=== PATIENT | female | born 1990 | race Caucasian/White ===

== ENCOUNTER → 2020-06-26 11:42 | Outpatient (BNVA) | payer OTHER, SELFPAY | PROVIDERS: Visit Provider Advanced Practice Midwife ==

== ENCOUNTER → 2020-06-29 13:41 | Outpatient (BNVA) | payer OTHER, SELFPAY | PROVIDERS: PCP Internal Medicine; Visit Provider Advanced Practice Midwife | DX: Z30.432 Encounter for removal of intrauterine contraceptive device (principal) | CPT/HCPCS: 58301 ==

== ENCOUNTER 2023-09-04 08:47 | Outpatient (AMB) | payer OTHER, SELFPAY ==
--- NOTE | 2023-09-04 08:50 | MHC.PC.OV ---
Vital Signs 09/04/23 08:54 Height 5 ft 5.5 in Weight 212 lb 6 oz BMI 34.8 BP 122/64 Blood Pressure Location Lt brachial Position Sitting Pulse 92 Pulse Source Pulse Oximeter Pulse Oximetry (%) 97 Oxygen Delivery Method Room Air Intake Visit Reasons: Re-establishing care last seen 2019/Annual PE Intake Note: Patient is here today to re-establish care. Business Intelligence Manager Required: No Marketing Research Intern: Not Required per policy Accompanied by: Self / Same As Patient Allergies iodine [IODINE] Allergy (Severe, Verified 09/04/23 09:15) THROAT CLOSING povidone-iodine [From BETADINE] Allergy (Severe, Verified 09/04/23 09:15) THROAT CLOSING soap [From BETADINE] Allergy (Severe, Verified 09/04/23 09:15) THROAT CLOSING Shellfish Allergy (Unknown, Uncoded 09/04/23 09:15) rash Medication List - Last Reconciled 09/04/23 by Garfield Estrada MD calcium carbonate (Tums) 200 mg PO TID PRN Tobacco use date assessed: 09/04/23 Dental Screening Dental Screen Date: 09/04/23 Did you have a dental visit in the last 12 months?: Yes Did you have a dental problem in the last 6 months where you did not have access to dental care?: No Was dental information given to patient?: Patient has dentist HPI Re-establishing care last seen 2019/Annual PE HPI Details Patient comes in today for her annual physical examination and to reestablish care - was last seen (via telehealth visit) on 07/20/2019 Patient states that she has since moved to the [facility] and got busy with her 2 children (ages 2 and 6) and did not even realize it has been that long since she was last seen here States that she has been experiencing increasing heartburns/acid reflux for the past few months and at one point, was having heartburns all the time - has been taking OTC Tums PRN with temporarily relief of her symptoms States that she has tried changing her diet and this seems to have helped somewhat but she is still experiencing acid reflux often and that these are usually worse towards the later part of the day She denies any trouble swallowing, denies any sore throat and denies any nausea/vomiting, or abdominal pain States that she still has frequent constipation - recalls that her bowel movements were much better when she was taking Miralax in the past but states that she has not been compliant with taking Miralax and instead has just been taking OTC stool softeners PRN She denies any headaches or dizziness Denies any exertional chest pains but reports (+) occasional sharp pains over her chest wall that she thinks are mostly due to anxiety as she seems to get them when she feels stressed out; denies any SOB Adds that she has a nodule on her right wrist that has been present for a couple of months now and feels that this has gotten bigger lately Notes that she would feel pain over the area where her nodule is when she extends her right wrist She goes for her annual gynecology exam and pap smear at [facility] and states that she last had her pap smear done in 11/2022 when she had her [facility] Medical History (Updated 09/04/23 @ 09:43 by Garfield Estrada MD) History of atrial septal defect Obesity (BMI 30-39.9) Constipation Smoker GERD (gastroesophageal reflux disease) Surgical History (Updated 09/04/23 @ 09:38 by Garfield Estrada MD) History of percutaneous transcatheter closure of congenital ASD Hx of section Family History Maternal Grandmother Ovarian cancer Family/Other Ovarian cancer Social History Housing: House Alcohol intake: never Patient Tobacco Use Status: Current everyday Tobacco user Tobacco use type: Cigarette Cigarette Packs Per Day: 0.5 Cigarettes Per Day: 8 e-Cigarette/Vaping Use: Never Used Second Hand Smoke Exposure: Yes service: No Current occupational status: unemployed Cognitive needs: No Hearing needs: No Vision needs: Yes (Reading Glasses) Female Reproductive History Menstrual Age of Menarche: 12 Number of Living Children: 2 Date of last pap smear: 12/13/22 Questionnaire PHQ-9 Over the last 2 weeks, how often have you been bothered by any of the following problems? 1. Little interest or pleasure in doing things: not at all 2. Feeling down, depressed, or hopeless: not at all 3. Trouble falling or staying asleep, or sleeping too much: not at all 4. Feeling tired or having little energy: not at all 5. Poor appetite or overeating: not at all 6. Feeling bad about yourself - or that you are a failure or have let yourself or your family down: not at all 7. Trouble concentrating on things, such as reading the newspaper or watching television: not at all 8. Moving or speaking so slowly that other people could have noticed. Or the opposite - being so fidgety or restless that you have been moving around a lot more than usual: not at all 9. Thoughts that you would be better off or of hurting yourself in some way: not at all Total score: 0 Depression Screening Interpretation: Negative Depression Screening Done: Yes 23710 - PHQ-9 Billing: Yes Source: Developed by Drs. Ryder Olivo, Iris Schaefer, Bryan Loaiza and colleagues, with an educational joelle from [email or web address] Thrive Questionnaire Date Thrive assessed: 09/04/23 I am a: Patient What is your living situation today?: I have a steady place to live Within the past 12 months, did the food you bought not last and you didn't have the money to get more?: Never true Within the past 12 months, did you worry whether your food would run out before you got money to buy more?: Never true Do you have trouble paying for medicines?: No Do you have trouble getting transportation to medical appointments?: No Do you have trouble paying your heating and electricity bill?: No Do you have trouble taking care of your child, family member or friend?: No Do you have trouble with day-to-day activities such as bathing, preparing meals, shopping, managing finances, etc.?: No Are you currently unemployed and looking for a job?: No Are you interested in more education?: No Currently or been in a relationship where the following occur: No concerns reported THRIVE Score: 0 AUDIT C Alcohol Use Questionnaire (AUDIT-C) 1. How often do you have a drink containing alcohol?: Never Total Score: 0 Score Reviewed/Action Taken: Yes GENI-7 AMB Questionnaire GENI-7 Date GENI - 7 assessed: 09/04/23 Feeling nervous, anxious, or on edge: 0 = Not at all Not being able to stop or control worryin = Not at all Worrying too much about different things: 0 = Not at all Trouble relaxin = Not at all Being so restless that it is hard to sit still: 0 = Not at all Becoming easily annoyed or irritable: 0 = Not at all Feeling afraid as if something awful might happen: 0 = Not at all Total GENI-7 score (0-4 normal; 5-9 mild; 10-14 moderate; 15-21 severe): 0 Source: Developed by Drs. Ryder Olivo, Iris Schaefer, Bryan Loaiza and colleagues, with an educational joelle from [email or web address]. Review of Systems Const Denies chills, Denies fatigue, Denies fever(s), Denies headache(s) and Denies malaise Eyes Denies blurry vision, Denies change in vision, Denies irritation and Denies itchy eyes ENT Denies dysphagia, Denies dizziness, Denies otalgia, Denies headache(s), Denies nasal congestion, Denies neck pain, Denies odynophagia, Denies sinus pain and Denies sore throat Card Details: (+) occasional sharp chest wall pains with increased stress/anxiety Denies chest pain, Denies rapid heart rate, Denies irregular heart rhythm, Denies palpitations and Denies dyspnea Resp Denies chest congestion, Denies cough, Denies dyspnea and Denies wheezing GI Denies abdominal pain, Denies bloating, Reports constipation (frequent), Denies dysphagia, Reports heartburn (recurrent), Denies diarrhea, Denies nausea, Denies odynophagia and Denies vomiting Denies hematuria, Denies urinary frequency, Denies dysuria, Denies urinary incontinence and Denies urinary urgency Musc Denies back pain, Denies arthralgias, Denies joint swelling, Denies muscle weakness and Denies neck pain Skin/Breast Details: (+) nodule on the right wrist - see HPI Denies breast pain, Denies breast mass, Denies change in pigmentation, Denies rash and Denies unusual bruising Neuro Denies dizziness, Denies headache(s) and Denies paresthesias Psych Reports anxiety and Denies depression Endo Denies fatigue and Denies palpitations Zay/Lymph Denies easy bruising Aller/Immun Denies itchy eyes and Denies wheezing Physical exam (Primary Care) Vital Signs: Last Vital Signs Pulse 92 07/05/24 08:54 BP 122/64 09/04/23 08:54 Pulse Ox 97 09/04/23 08:54 Oxygen Delivery Method Room Air 09/04/23 08:54 BMI result Body Mass Index 34.8 Tobacco/Smoking Status: Tobacco use Status Tobacco use date assessed 09/04/23 09/04/23 08:59 Patient Tobacco Use Status Current everyday Tobacco 09/04/23 08:59 Tobacco use type Cigarette 09/04/23 08:59 e-Cigarette/Vaping Use Never Used 09/04/23 08:59 PHQ-9: PHQ-9 Score PHQ-9: Total score 0 09/04/23 08:53 Depression Screening Interpretation: Negative Thrive Assessment: Date of Thrive Assessment Date Thrive assessed 09/04/23 09/04/23 08:53 Currently or been in a relationship where the following occur: No concerns reported Const General: no acute distress, alert and awake Orientation/consciousness: patient oriented x3 HENMT Head: Yes normocephalic and Yes atraumatic Ears: external ears normal, TM's normal bilaterally and EAC's normal General nose exam: No nasal discharge present Face and sinus: Yes normal facial exam and Yes sinuses nontender Teeth and gingiva: dentition normal Throat: Yes posterior oropharynx normal and Yes tonsils normal (no TP congestion) Eyes Eyelids: Yes eyelids normal Conjunctivae: conjunctivae normal Pupils: Equal, round and reactive pupils present EOM: EOMs intact bilaterally Neck Neck: Yes no lymphadenopathy and Yes supple Thyroid: Thyroid normal Resp Auscultation: clear to auscultation bilaterally, no rales and no wheezes Cardio Rate: regular rate Rhythm: regular rhythm Heart sounds: no murmurs GI Palpation (GI): Soft to palpation, nontender and No hepatosplenomegaly present Auscultation: normal bowel sounds General: Yes no CVA tenderness Back/Spine/Pelvis Back: no CVA tenderness Thoracic/Lumbar Spine: thoracic and lumbar spine normal to inspection Skin Lesions: no lesions Rashes: no rashes Neuro General: patient oriented x3, moves all extremities, no focal motor deficits and CN's II-XI intact bilaterally Cranial nerves: Yes Equal, round and reactive pupils present Cognition (Neuro): normal cognition Gait exam (Neuro): Normal gait present Extrem Other: (+) small nodular lesion over the radial side of the volar aspect of the right wrist - nodule is slightly tender on palpation General: Yes no clubbing, cyanosis or edema Assessment and Plan Assessment & Plan (1) Annual physical exam: Code(s): Z00.00 - Encounter for general adult medical examination without abnormal findings Plan: Check labs (2) Ganglion cyst of volar aspect of right wrist: Code(s): M67.431 - Ganglion, right wrist Plan: Will refer patient to orthopedics for further evaluation and consideration for excision/aspiration of her ganglion cyst if appropriate (3) GERD (gastroesophageal reflux disease): Code(s): K21.9 - Gastro-esophageal reflux disease without esophagitis Qualifiers: Esophagitis presence: without esophagitis Qualified Code(s): K21.9 - Gastro-esophageal reflux disease without esophagitis Plan: Discussed dietary restrictions in GERD Will start her for now on Lansoprazole 30 mg QD x 30 days, then PRN (will avoid Omeprazole and Pantoprazole due to patient's severe allergic reaction to iodine) Have advised patient that if her symptoms do not respond to Tx with PPI or if they continue to recur after the initial 30 days of Tx, then we will need to consider sending her for some imaging studies and/or refer her to GI for further evaluation and consideration for EGD (4) Constipation: Code(s): K59.00 - Constipation, unspecified Qualifiers: Constipation type: unspecified constipation type Qualified Code(s): K59.00 - Constipation, unspecified Plan: Encouraged patient again on increased oral fluids and dietary fiber intake Have advised her to try going back on Miralax 17 gm QD; can also still take OTC stool softeners like Senna or Colace PRN (5) Smoker: Code(s): F17.200 - Nicotine dependence, unspecified, uncomplicated Plan: Counseled again on smoking cessation (6) Obesity (BMI 30-39.9): Code(s): E66.9 - Obesity, unspecified Plan: Reinforced diet/exercise as tolerated/lose weight Plan Follow up in 6 months Orders: Orders Complete Blood Count Auto Diff Today D64.9 - Anemia, unspecified, Z00.00 - Encounter for general adult medical examination without abnormal findings Comprehensive [place]. Panel Fast Today E78.00 - Pure hypercholesterolemia, unspecified, Z00.00 - Encounter for general adult medical examination without abnormal findings Lipid Panel Today E78.00 - Pure hypercholesterolemia, unspecified, Z00.00 - Encounter for general adult medical examination without abnormal findings TSH reflex Free T4 Today E78.00 - Pure hypercholesterolemia, unspecified, Z00.00 - Encounter for general adult medical examination without abnormal findings UA CC w/rflx Micro + Cult Today R30.0 - Dysuria, Z00.00 - Encounter for general adult medical examination without abnormal findings Vitamin D 25-OH Total Today E55.9 - Vitamin D deficiency, unspecified, Z00.00 - Encounter for general adult medical examination without abnormal findings Referrals Orthopedics Referral M67.431 - Ganglion, right wrist Medications: New lansoprazole 30 mg PO DAILY 30 days 30 caps 3RF K21.9 - Gastro-esophageal reflux disease without esophagitis Coding Level of Care Code New Pt Prev Care 18-39yr([id number] Diagnoses Annual physical exam Z00.00 Ganglion cyst of volar aspect of right wrist M67.431 Gastroesophageal reflux disease without esophagitis K21.9 Esophagitis presence: without esophagitis Constipation, unspecified constipation type K59.00 Constipation type: unspecified constipation type Smoker F17.200 Obesity (BMI 30-39.9) E66.9
[2023-09-04 08:54] VITALS: BP 122/64; PULSE 92; O2SAT 97; BMI 34.8
== END 2023-09-04 09:28 | disposition home or self-care (01) ==
PROVIDERS: Visit Provider Internal Medicine
DX: Z00.00 Encounter for general adult medical examination without abnormal findings (principal); M67.431 Ganglion, right wrist; K21.9 Gastro-esophageal reflux disease without esophagitis; K59.00 Constipation, unspecified; F17.200 Nicotine dependence, unspecified, uncomplicated
CPT/HCPCS: 99385

== ENCOUNTER 2023-09-16 09:45 | Outpatient (AMB) | payer OTHER, SELFPAY ==
--- NOTE | 2023-09-16 09:55 | MHC.OFFVIS ---
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 Patient reports this has been present for a couple of months and feels that it grew in size. She occasionally feels pain over the area when she extends her wrist. She says she was getting up off the ground one day and felt a sharp pain in her wrist when she put pressure, it was sore and red and she thinks she just pulled a muscle but then noticed a week after the bump. She states it feels hard like a bone . Denies numbness and tingling. 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 She complains of a mass on her right radial wrist, which has been present for ~3. She says she felt pain one day pushing up off the ground, and ~1 week later she began to notice this mass. She says this has changed in size, and feels hard to the touch. She reports pain with wrist extension, but otherwise this does not hurt her. [facility] Medical History History of atrial septal defect Obesity (BMI 30-39.9) Constipation Smoker GERD (gastroesophageal reflux disease) Surgical History History of percutaneous transcatheter closure of congenital ASD Hx of section Family History Maternal Grandmother Ovarian cancer Family/Other Ovarian cancer Social History Housing: House Alcohol intake: never Patient Tobacco Use Status: Current everyday Tobacco user Tobacco use type: Cigarette Cigarette Packs Per Day: 0.5 Cigarettes Per Day: 8 e-Cigarette/Vaping Use: Never Used Second Hand Smoke Exposure: Yes service: No Current occupational status: unemployed Cognitive needs: No Hearing needs: No Vision needs: Yes (Reading Glasses) Female Reproductive History Menstrual Age of Menarche: 12 Review of Systems Const All systems reviewed & are unremarkable except as noted in HPI and below Physical Exam Vital Signs: BMI result Body Mass Index 35.4 Const General: cooperative, healthy appearing and no acute distress Orientation/consciousness: patient oriented x3 HEENT Head: Yes normocephalic and Yes atraumatic Eyes EOM: EOMs intact bilaterally Resp Effort & Inspection: normal respiratory effort and able to speak in complete sentences Cardio Jugular venous distension: no JVD Skin General skin exam: turgor normal Rashes: no rashes Neuro General: patient oriented x3 Extrem Other: Evaluation of Right Upper Extremity: The patient is alert, oriented, and in no acute distress Neuro: Median, Ulnar, Radial nerves motor and sensory intact and sensation is normal to the tips of all digits Vascular: Cap refill brisk ROM: She can make a fist and extend all her digits No locking or catching Skin: No lacerations or abrasions. General: No Ecchymosis. No Erythema or evidence of infection. There is a mass on the volar radial aspect of the right wrist, firm, nontender to palpation. This measures ~1-2 in diameter. Psych Appearance: grossly normal Affect: normal affect Attitude: cooperative Assessment & Plan Assessment & Plan (1) Ganglion cyst of volar aspect of right wrist: Code(s): M67.431 - Ganglion, right wrist Category: Medical Plan Assessment & Plan: 1. Right volar wrist ganglion cyst Measuring ~1-2in diameter I educated her about this condition I discussed operative and non-operative treatment options Her wrist was wrapped in Coban to be used prn. She will follow up in [address] Vilalrreal to see how she is doing. If she continues to have issues we may consider aspiration surgery at that time. Scribed for BROOKLYNN Manley by Gilberto Schroeder, medical transcription supervisor, on 09/16/23 at 10:00 AM, EST. Scribe Plan - Not visible on output: Scribed for Tierney Villarreal MD by Gilberto Schroeder, medical transcription supervisor, on [ ] at [ ], EST. Coding Level of Care Code New Pt Level 3 (30426) Diagnoses Ganglion cyst of volar aspect of right wrist M67.431
[2023-09-16 09:56] VITALS: BMI 35.4
== END 2023-09-16 10:38 | disposition home or self-care (01) ==
DX: M67.431 Ganglion, right wrist (principal)
CPT/HCPCS: 99203

== ENCOUNTER 2024-07-13 08:46 | Outpatient (AMB) | payer OTHER, SELFPAY ==
--- NOTE | 2024-07-13 08:50 | A.OFFPC_ITS ---
Vital Signs 07/13/24 08:52 Height 5 ft 5 in Weight 195 lb 4 oz BMI 32.5 BP 120/80 Blood Pressure Location Lt brachial Position Sitting Pulse 89 Pulse Source Pulse Oximeter Temp 97.1 F Temp Source Temporal Artery Scan Pulse Oximetry (%) 99 Oxygen Delivery Method Room Air Intake Visit Reasons: [facility] 07/09 Intake Note: Patient is here for hospital discharge follow up. Patient was discharged from [facility] on 07/12/24. Police Chief Deputy Required: No Health Education Assistant: Not Required per policy Accompanied by: Self / Same As Patient Allergies iodine [IODINE] Allergy (Severe, Verified 07/13/24 12:07) THROAT CLOSING povidone-iodine [From BETADINE] Allergy (Severe, Verified 07/13/24 12:07) THROAT CLOSING soap [From BETADINE] Allergy (Severe, Verified 07/13/24 12:07) THROAT CLOSING Shellfish Allergy (Unknown, Uncoded 07/13/24 12:07) rash Medication List - Last Reconciled 07/13/24 by NIMA Jones lansoprazole 30 mg PO DAILY 30 days Tobacco use date assessed: 07/13/24 Dental Screening Dental Screen Date: 07/13/24 Did you have a dental visit in the last 12 months?: No Did you have a dental problem in the last 6 months where you did not have access to dental care?: No Was dental information given to patient?: Patient has dentist HPI [facility] 07/09 HPI Details Patient is presenting for follow up post [facility] ER visit: The patient is a 34 year old female presenting with neurological symptoms and management of gastroesophageal reflux disease (GERD). Following the removal of a malpositioned IUD, she experienced abdominal pain and subsequently, difficulty walking, alongside weakness and numbness in the lower extremities. An MRI of the spine proposed impingement but did not clarify the leg weakness noted, although a CT of the head was performed to evaluate for stroke, which was eventually ruled out. The patient experienced a sudden improvement of symptoms, with complete return of sensation and strength. MRI of the spine: Shows no abnormally enhancement. Findings are most marked at the level of L5/L1. Mild diffuse disc bulge slightly eccentric to the left causing moderate left lateral recess narrowing with abutmen of the traversing left S1 nerve root in the left lateral recess and moderate to severe neural in the left neural foraminal narrowing causing impingement on existing left L5 nerve root. Central canal, right lateral recess, and right neural foramin are patent. MRI of the brain was aborted due to improvement of symptoms. Regarding GERD, her heartburn was initially managed with lansoprazole, which was effective until she developed a widespread rash, subsequently identified as athlete's foot by urgent care and treated with steroid cream. After discontinuing the medication, the heartburn returned with consistent, severe chest burning, independent of meal consumption. [facility] Medical History History of atrial septal defect Obesity (BMI 30-39.9) Constipation Smoker GERD (gastroesophageal reflux disease) Surgical History History of percutaneous transcatheter closure of congenital ASD Hx of section Family History Maternal Grandmother Ovarian cancer Family/Other Ovarian cancer Social History Housing: House Alcohol intake: never Patient Tobacco Use Status: Current everyday Tobacco user Tobacco use type: Cigarette Cigarette Packs Per Day: 0.5 Cigarettes Per Day: 7 e-Cigarette/Vaping Use: Never Used Second Hand Smoke Exposure: Yes service: No Current occupational status: unemployed Current occupation: rt handed Cognitive needs: No Hearing needs: No Vision needs: Yes (Reading Glasses) Female Reproductive History Menstrual Age of Menarche: 12 Questionnaire PHQ-9 Over the last 2 weeks, how often have you been bothered by any of the following problems? 1. Little interest or pleasure in doing things: not at all 2. Feeling down, depressed, or hopeless: not at all 3. Trouble falling or staying asleep, or sleeping too much: not at all 4. Feeling tired or having little energy: several days 5. Poor appetite or overeating: several days 6. Feeling bad about yourself - or that you are a failure or have let yourself or your family down: not at all 7. Trouble concentrating on things, such as reading the newspaper or watching television: not at all 8. Moving or speaking so slowly that other people could have noticed. Or the opposite - being so fidgety or restless that you have been moving around a lot more than usual: several days 9. Thoughts that you would be better off or of hurting yourself in some way: not at all Total score: 3 Depression Screening Interpretation: Positive Depression Screening Done: Yes 38731 - PHQ-9 Billing: Yes Source: Developed by Drs. Ryder Olivo, Iris Schaefer, Bryan Loaiza and colleagues, with an educational joelle from [employer]. Thrive Questionnaire Date Thrive assessed: 07/13/24 I am a: Patient What is your living situation today?: I have a steady place to live Within the past 12 months, did the food you bought not last and you didn't have the money to get more?: Never true Within the past 12 months, did you worry whether your food would run out before you got money to buy more?: Never true Do you have trouble paying for medicines?: No Do you have trouble getting transportation to medical appointments?: No Do you have trouble paying your heating and electricity bill?: No Do you have trouble taking care of your child, family member or friend?: No Do you have trouble with day-to-day activities such as bathing, preparing meals, shopping, managing finances, etc.?: No Are you currently unemployed and looking for a job?: No Are you interested in more education?: No Please select the resources that you would like help with: None Currently or been in a relationship where the following occur: No concerns reported THRIVE Score: 0 AUDIT C Alcohol Use Questionnaire (AUDIT-C) 1. How often do you have a drink containing alcohol?: Never Total Score: 0 GENI-7 AMB Questionnaire GENI-7 Date GENI - 7 assessed: 07/13/24 Feeling nervous, anxious, or on edge: 0 = Not at all Not being able to stop or control worryin = Not at all Worrying too much about different things: 0 = Not at all Trouble relaxin = Not at all Being so restless that it is hard to sit still: 0 = Not at all Becoming easily annoyed or irritable: 1 = Several days Feeling afraid as if something awful might happen: 0 = Not at all Total GENI-7 score (0-4 normal; 5-9 mild; 10-14 moderate; 15-21 severe): 1 Source: Developed by Drs. Ryder Olivo, Iris Schaefer, Bryan Loaiza and colleagues, with an educational joelle from [employer]. GENI-7 Assessment Billing GENI-7 Assessment Tool: GENI-7 Assessment 67111 Review of Systems Const Denies headache(s) Eyes Denies loss of vision ENT Denies vertigo, Denies dizziness, Denies headache(s) and Denies sore throat Card Denies chest pain, Denies leg edema and Denies lightheadedness Resp Denies cough, Denies hemoptysis and Denies wheezing GI Denies abdominal pain, Denies melena, Denies constipation, Reports heartburn, Denies diarrhea and Denies vomiting Denies urinary frequency, Denies dysuria and Denies urinary urgency Musc Denies arthralgias, Denies joint swelling, Denies numbness and Denies tingling Neuro Denies Abnormal speech present, Denies behavioral changes, Denies vertigo, Denies dizziness, Denies headache(s), Denies loss of vision, Denies memory loss, Denies numbness and Denies tingling Psych Denies anxiety, Denies behavioral changes, Denies depression, Denies memory loss and Denies panic attacks Zay/Lymph Denies easy bleeding and Denies easy bruising Aller/Immun Denies wheezing Physical exam (Primary Care) Vital Signs: Last Vital Signs Temp 97.1 F 07/13/24 08:52 Pulse 89 07/13/24 08:52 BP 120/80 07/13/24 08:52 Pulse Ox 99 07/13/24 08:52 Oxygen Delivery Method Room Air 07/13/24 08:52 BMI result Body Mass Index 32.5 Tobacco/Smoking Status: Tobacco use Status Tobacco use date assessed 07/13/24 07/13/24 08:56 Patient Tobacco Use Status Current everyday Tobacco 07/13/24 08:56 Tobacco use type Cigarette 07/13/24 08:56 e-Cigarette/Vaping Use Never Used 07/13/24 08:56 PHQ-9: PHQ-9 Score PHQ-9: Total score 3 07/13/24 08:56 Depression Screening Interpretation: Positive Thrive Assessment: Date of Thrive Assessment Date Thrive assessed 07/13/24 07/13/24 08:56 Currently or been in a relationship where the following occur: No concerns reported Const General: healthy appearing, no acute distress, alert and awake Nutritional Appearance: well nourished Orientation/consciousness: oriented to person, oriented to place and oriented to time HENMT Ears: TM's normal bilaterally General nose exam: Normal nasal mucous membranes and turbinates present Eyes Conjunctivae: conjunctivae normal Sclerae: sclerae normal Pupils: Equal, round and reactive pupils present Neck Neck: Yes no lymphadenopathy and Yes no JVD Thyroid: Thyroid normal Carotids: no bruits Resp Effort & Inspection: normal respiratory effort and not tachypneic Auscultation: no crackles, no rales, no rhonchi and no wheezes Cardio Rate: regular rate Rhythm: regular rhythm Heart sounds: no murmurs and normal S1 and S2 GI Palpation (GI): Soft to palpation, nontender, no hepatomegaly and no splenomegaly Auscultation: normal bowel sounds Skin General skin exam: no rashes or lesions noted and dry skin Neuro General: oriented to person, oriented to place and oriented to time Cranial nerves: Yes Equal, round and reactive pupils present Speech: No Abnormal speech present Gait exam (Neuro): Normal gait present Motor exam (neuro): no tremor noted Extrem Right upper extremity: full ROM Left upper extremity: full ROM Right lower extremity: full ROM; no edema Left lower extremity: full ROM; no edema Psych Mental Status: mental status grossly normal Speech and movement: Normal speech and movement present Affect: normal affect Attitude: cooperative Thought process: Normal thought process present Coding Level of Care Code Est Pt Level 4 (65830) Diagnoses Bilateral leg pain M79.604; M79.605 Leg numbness R20.0 Weakness of right lower extremity R29.898 Laterality: right Gastroesophageal reflux disease without esophagitis K21.9 Esophagitis presence: without esophagitis Other intervertebral disc displacement, lumbar region M51.26 Additional Codes PHQ-9 - 23501 - PHQ-9 Billing: Yes ([id number]) GENI-7 Assessment Billing - GENI-7 Assessment Tool: GENI-7 Assessment 99243 ([id number]) Time Spent (min) 39 Assessment & Plan Assessment & Plan (1) Bilateral leg pain: Code(s): M79.604 - Pain in right leg; M79.605 - Pain in left leg Category: Medical (2) Leg numbness: Code(s): R20.0 - Anesthesia of skin Category: Medical (3) Leg weakness: Code(s): R29.898 - Other symptoms and signs involving the musculoskeletal system Category: Medical Qualifiers: Laterality: right Qualified Code(s): R29.898 - Other symptoms and signs involving the musculoskeletal system (4) GERD (gastroesophageal reflux disease): Code(s): K21.9 - Gastro-esophageal reflux disease without esophagitis Category: Medical Qualifiers: Esophagitis presence: without esophagitis Qualified Code(s): K21.9 - Gastro-esophageal reflux disease without esophagitis (5) Other intervertebral disc displacement, lumbar region: Code(s): M51.26 - Other intervertebral disc displacement, lumbar region Category: Medical Plan The patient went to [facility] emergency room with complaints of bilateral lower extremity pain and right lower extremity weakness/numbness. Reports that the pain began in bilateral thighs early in the week but was not concerning. However, the patient started experiencing lower back pain and she became concerned with noted numbness and weakness in her right lower extremity. The patient denies any trauma, fever, nausea, vomiting, cauda equina symptoms. Attempted twice for lumbar puncture was unsuccessful due to scoliosis. The patient was transferred to [facility] for lumbar puncture with Interventional Radiology as well as MRI imaging of the brain and cervical spine, and thoracic spine. Before these procedures and imaging were able to be completed, the patient shifted in bed and felt resolution of her symptoms. She had complete strengthening endorsed no numbness or tingling. The patient did have a CT of the head that was unremarkable. She has allergy to iodine contrast, the patient refused CTA head and neck. MRI notable for L5/S1 left-sided disc bulge which explains LLE pain as it is consistent with sciatica. However it does not explain the right lower extremity weakness. This raises concern for potential intracranial abnormality initially and there was a plan the complete brain MRI to rule out CVA. However, since the resolution of the patient's symptoms, the patient was considered to be safe to follow up outpatient. The patient also reports stopping lansoprazole 30 mg after developing a rash over 3 weeks of using the medication. Reports that she was told at urgent Care that the rash was fungal-related. Now, she is not convinced if this medication caused the rash or not however her heartburn has returned and she would like to try this medication again because it helped her before. Orders: Orders Complete Blood Count Auto Diff 4 Months E66.9 - Obesity, unspecified, F17.200 - Nicotine dependence, unspecified, uncomplicated, Z00.00 - Encounter for general adult medical examination without abnormal findings Lipid Panel 4 Months E66.9 - Obesity, unspecified, F17.200 - Nicotine dependence, unspecified, uncomplicated, Z00.00 - Encounter for general adult medical examination without abnormal findings UA CC w/rflx Micro + Cult 4 Months E66.9 - Obesity, unspecified, F17.200 - Nicotine dependence, unspecified, uncomplicated, Z00.00 - Encounter for general adult medical examination without abnormal findings TSH reflex Free T4 4 Months E66.9 - Obesity, unspecified, F17.200 - Nicotine dependence, unspecified, uncomplicated, Z00.00 - Encounter for general adult medical examination without abnormal findings Comprehensive [place]. Panel Fast 4 Months E66.9 - Obesity, unspecified, F17.200 - Nicotine dependence, unspecified, uncomplicated, Z00.00 - Encounter for general adult medical examination without abnormal findings Vitamin D 25-OH Total 4 Months E66.9 - Obesity, unspecified, F17.200 - Nicotine dependence, unspecified, uncomplicated, Z00.00 - Encounter for general adult medical examination without abnormal findings Glucose Fasting 4 Months E66.9 - Obesity, unspecified, F17.200 - Nicotine dependence, unspecified, uncomplicated, Z00.00 - Encounter for general adult medical examination without abnormal findings Referrals Neurosurgery Referral M51.26 - Other intervertebral disc displacement, lumbar region, M79.604 - Pain in right leg, M79.605 - Pain in left leg, R20.0 - Anesthesia of skin Gastroenterology Referral K21.9 - Gastro-esophageal reflux disease without esophagitis Medications: Refilled lansoprazole 30 mg PO DAILY 30 days 30 caps 3RF K21.9 - Gastro-esophageal reflux disease without esophagitis
[2024-07-13 08:52] VITALS: BP 120/80; PULSE 89; TEMP 36.2; O2SAT 99; BMI 32.5
--- OUTSIDE RECORDS SUMMARY | 2024-07-13 09:06 | XMS_ITS | Data Portability ---
Author Organization [facility], [address] Address [address] [place] [phone] Assessment No assessment recorded. Plan of Treatment Reminders Order Date Submit Date Provider Last Modified By Organization Details Last Modified Time Details Appointments None recorded. Lab rapid flu (A+B) 2021 [email or web address], [address] [place], [phone], 15:14:26 Referral None recorded. Procedures None recorded. Surgeries None recorded. Imaging None recorded. Medication Orders Tamiflu 75 mg capsule 2021 [id number], [address] [place], [address], 15:19:22 albuterol sulfate HFA 90 mcg/actuati on aerosol inhaler [id number] [address] [place], [address], 15:19:22 prednisone 10 mg tablet 2021 [id number], [address] [place], [address], 15:19:23 Patient TargetsNo targets recorded. Patient Instructions Encounter Date Encounter Id Patient Instructions Last Modified By Organization Details Last Modified Time 02/18/2022 [id number] influenza (flu): care instructions Not available 02/18/2022 15:19:19 You have tested positive for the flu (influenza). If prescribed take Tamiflu (oseltamivir). Take Mucinex DM or Robitussin DM as needed for cough and congestion. You can also try Flonase Allergy 2 sprays to each nostril once a day for congestion. You can also try saline spray for stuffy nose. If you do not have high blood pressure or heart problems, you can try Sudafed or similar decongestants for congestion. If you have high blood pressure you can take Coracidin HBP You can take Claritin or Zyrtec as needed for drainage. Take over the counter acetaminophen or ibuprofen as needed for pain, body aches, fever, or chills. You can try throat lozenges or salt water gargles for any sore throat. Your symptoms may take 7-10 days to go away. Drink lots of fluids. Get plenty of rest. Contact us if you have worsening symptoms such as high fever, shortness of breath, inability to keep liquids and solids down, or other worsening symptoms. Contact us if your symptoms fail to improve after 10 days. Not available 02/18/2022 15:18:09 Reason for Referral None Reported. Results Created Date Observation Date Name Description Value Unit Range Abnormal Flag Note LastModifiedBy Organization Detail LastModifiedTime 02/19/20 22 02/18/2022 rapid flu (A+B) Unknown Analyte Normal = Negati ve Not Available [place] [facility], [phone], 02/18/2022 15:13:35 02/19/20 22 02/18/2022 rapid flu (A+B) Unknown Analyte positi ve Not Available [place] [facility] [place] [address], [phone], 02/18/2022 15:13:35 02/19/20 22 02/18/2022 rapid flu (A+B) Unknown Analyte Normal = Negati ve Not Available [facility] [address] [place] [address], [phone], 02/18/2022 15:13:35 02/19/2002/18/2022 rapid flu (A+B) Unknown Analyte negati ve Not Available _ [facility] [address] [place], [address], 02/18/2022 15:13:35 Result Notes None recorded. Problems No Known Problems Medical Equipment None Reported. Allergies Allergen ID Allergen Name Allergen Category Reaction Reaction Severity Criticality Documentation Date Start Date Code Code System Note Provider Name and Address Organization Details Recorded Time 58583 iodine medicatio n Not available Not available Not available 02/18/2022 5933 RxNorm BROOKLYNN Rodriguez [employer] [facility] 14:34:06 Medications Name Sig Start Date Stop Date Status Note LastModified by Organization Details LastModified Time prednisone 10 mg tablet Take 3 tablets every day by oral route for 5 days. 2021 active Not Available Not Available Not Avai lable Tamiflu 75 mg capsule Take 1 capsule twice a day by oral route for 5 days. 2021 active Not Available Not Available Not Avai lable albuterol sulfate HFA 90 mcg/actuatio n aerosol inhaler Inhale 2 puffs every 4 hours by inhalation route as needed. 2021 active Not Available Not Available Not Avai lable Vitals Date Recorded Body height Body mass index (BMI) Body weight Oxygen saturation Oxygen saturation in Arterial blood by Pulse oximetry Heart rate Respiratory rate Body temperature Systolic blood pressure Diastolic blood pressure Provider Name and Address Organization Details Last Updated DateTime 2 165.1 cm 36.6 kg/m2 63253.3 2 g 97 % 97 % 108 /min 18 /min 98.7 [degF] 143 mm[Hg] 85 mm[Hg] Alex OVERTON [employer] 2 14:36:18 Social History Question Answer Notes LastModified by Organization D etails LastModified Time Have You Had Direct Contact, Or Contact During Intimacy, With Monkeypox Rash, Scabs, Or Body Fluids From A Person With Monkeypox? No Information not available 02/18/2022 Have You Recently Traveled Abroad? No Information not available 02/18/2022 Sex: Unknown Functional Status Question Answer Note LastModified by Organizat ion Details LastModified Time Do you use any illicit or recreational drugs? No Information not available 02/18/2022 What is your level of alcohol consumption? Occasional Information not available 02/18/2022 Mental Status None recorded. Family History Relationship Description Onset Age of this Age Resolved Age Notes LastModified by Organization Details LastModified Time Father No current problems or disability Not available 02/18 14:34:13 Mother No current problems or disability Not available 02/18 14:34:13 Medical History No medical history recorded. Gynecological HistoryNo gynecological history recorded. Obstetrics History GPAL:G 0 P 0 0 0 0 Immunizations Vaccine Type Date Status Note Provider Nam e and Address Organization Details Recorded Time COVID-19, mRNA, LNP-S, PF, 30 mcg/0.3 mL dose 06/22/2020 completed Alex ruiz, PA - [facility] 02/18/2022 14:33:45 Tdap 07/06/2017 completed Alex ruiz, PA - [facility] 02/18/2022 14:33:45 Tdap 04/04/2021 completed Alex ruiz, PA - [facility] 02/18/2022 14:33:45 COVID-19, mRNA, LNP-S, PF, 30 mcg/0.3 mL dose 05/30/2020 completed Alex ruiz, PA - [facility] 02/18/2022 14:33:45 Past Encounters Encounter ID Performer Location Encounter Start Date Encounter Closed Date Diagnosis/Indication Diagnosis SNOMED-CT Code Diagnosis ICD10 Code Diagnosis Note [id number] [address] [address] [place] [id number] 02/25/2021 08:08:13 02/25/2021 09:06:[id number] [address] [place] [phone] 02/05/2021 08:03:11 02/05/2021 09:36:45 [id number] [facility] [address] [place] [id number] 7 10/15/2017 18:35:09 10/15/2017 19:01:19 [id number] [facility] [address] [place] [id number] 7 03/05/2018 08:04:29 03/05/2018 09:07:23 [id number] [facility] [address] [place] [id number] 7 2020 16:14:37 2020 18:02:[id number] [place] [address] [address] [address] [place] [id number] 06/06/2017 12:16:35 06/06/2017 13:34:[id number] [place] [address] [address] [address] [place] [id number] 03/07/2021 08:08:03 03/07/2021 09:05:[id number] [place] [address] [address] [place] [id number] 7 08/18/2021 17:29:53 08/18/2021 18:07:50 [id number] L[place] Sun [place] [address] [address] [place] [id number] 7 02/18/2022 10:27:47 02/18/2022 15:20:35 Influenza caused by Influenza A virus [id number] J09.X2 Health Concerns Section Related Observation LastModified by Organization Detai ls LastModified Time None Recorded Concern Status LastModified by Organization Details LastModified Time None Recorded Advance Directives Directive None Recorded Payers Insurance Date Sequence Insurance Name Policy Number Policy Cali Covered Member ID Cali Member ID Guarantor Name 02/18/[address] [place] [address] [id number] Matthew Orozco [id number] Matthew Orozco Notes Date Note Type Note Provider Name and Address Organization Details Recorded Time 02/18/2022 text/html CoughReported bypatient.Quality:d ry Severity:moderate Duration:constant Timing:sudden Associated Symptoms:no fever; no chest pain; no heartburn; no nausea; no vomiting;chills Pt c/o cough, congestion and body aches x 3 days. Negative rapid covid test at home. Lala Sun MD [address] [place], [address], PA - [facility] 02/18/2022 15:20:57 OBGyn Episode No OBEpisode recorded.
== END 2024-07-13 09:49 | disposition home or self-care (01) ==
LOC: HO.HMCH 08:46
PROVIDERS: PCP Internal Medicine
DX: M79.604 Pain in right leg (principal); M79.605 Pain in left leg; R20.0 Anesthesia of skin; R29.898 Other symptoms and signs involving the musculoskeletal system; K21.9 Gastro-esophageal reflux disease without esophagitis; M51.26 Other intervertebral disc displacement, lumbar region

== ENCOUNTER → 2024-07-13 08:46 | Outpatient (BNVA) | payer OTHER, SELFPAY | PROVIDERS: PCP Internal Medicine | DX: K21.9 Gastro-esophageal reflux disease without esophagitis (principal); M79.604 Pain in right leg; M79.605 Pain in left leg; R10.9 Unspecified abdominal pain; R20.0 Anesthesia of skin; R29.898 Other symptoms and signs involving the musculoskeletal system; M51.26 Other intervertebral disc displacement, lumbar region; E66.9 Obesity, unspecified; F17.210 Nicotine dependence, cigarettes, uncomplicated; Z68.32 Body mass index [BMI] 32.0-32.9, adult | CPT/HCPCS: 96127 ==

== ENCOUNTER 2024-07-18 13:33 | Outpatient (AMB) | payer OTHER, SELFPAY ==
--- OUTSIDE RECORDS SUMMARY | 2024-07-18 13:37 | XMS_ITS | Data Portability ---
Author Organization BROOKLYNN Silva [facility], [address] Address [address] [place] [phone] Assessment No assessment recorded. Plan of Treatment Reminders Order Date Submit Date Provider Last Modified By Organization Details Last Modified Time Details Appointments None recorded. Lab rapid flu (A+B) 2021 [email or web address], [address] [place], [phone], 15:14:26 Referral None recorded. Procedures None recorded. Surgeries None recorded. Imaging None recorded. Medication Orders Tamiflu [address] [facility] ([place], [place]Pharmacy #[id number], [address] [place], [address], 15:19:22 albuterol sulfate HFA 90 mcg/actuati on aerosol inhaler [id number] [address] [place], [address], 15:19:22 prednisone 10 mg tablet [id number] [address] [place], [address], 15:19:23 Patient TargetsNo targets recorded. Patient Instructions Encounter Date Encounter Id Patient Instructions Last Modified By Organization Details Last Modified Time 02/18/2022 [id number] influenza (flu): care instructions Not available 02/18/2022 [...] Analyte Normal = Negati ve Not Available [place] [facility], [phone], 02/18/2022 15:13:35 02/19/20 22 02/18/2022 rapid flu (A+B) Unknown Analyte positi ve Not Available [place] [facility] [address] [place] [address], [phone], 02/18/2022 15:13:35 02/19/20 22 02/18/2022 rapid flu (A+B) Unknown Analyte Normal = Negati ve Not Available [facility] [address] [place] [address], [phone], 02/18/2022 15:13:35 02/19/2002/18/2022 rapid flu (A+B) Unknown Analyte negati ve Not Available _ [facility] [address] [place], [address], 02/18/2022 15:13:35 Result Notes None recorded. Problems No Known Problems Medical Equipment None Reported. Allergies Allergen ID Allergen Name Allergen Category Reaction Reaction Severity Criticality Documentation Date Start Date Code Code System Note Provider Name and Address Organization Details Recorded Time 98914 iodine medicatio n Not available Not available Not available 02/18/2022 5933 RxNorm BROOKLYNN Rodriguez [facility] 14:34:06 Medications Name Sig Start Date Stop [...] Updated DateTime 2 165.1 cm 36.6 kg/m2 12522.3 2 g 97 % 97 % 108 /min 18 /min 98.7 [degF] 143 mm[Hg] 85 mm[Hg] Alex OVERTON [facility] 2 14:36:18 Social History Question Answer Notes [...] SNOMED-CT Code Diagnosis ICD10 Code Diagnosis Note [id number] [address] [facility] [address] [place] [phone] 02/25/2021 08:08:13 02/25/2021 09:06:[id number] [address] [place] [phone] 7 02/05/2021 08:03:11 02/05/2021 09:36:45 [id number] [facility] [address] [place] [phone] 10/15/2017 18:35:09 10/15/2017 19:01:19 [id number] [facility] [address] [place] [phone] 7 03/05/2018 08:04:29 03/05/2018 09:07:23 [id number] [facility] [address] [place] [phone] 2020 16:14:37 2020 18:02:[id number] [place] [address] [facility] [address] [place] [phone] 06/06/2017 12:16:35 06/06/2017 13:34:[id number] [place] [address] [facility] [address] [place] [phone] 03/07/2021 08:08:03 03/07/2021 09:05:[id number] [place] [address] [address] [place] [phone] 08/18/2021 17:29:53 08/18/2021 18:07:50 [id number] Lala Sun MD [address] [address] [place] [phone] 02/18/2022 10:27:47 02/18/2022 15:20:35 Influenza caused by Influenza A virus [id number] J09.X2 Health Concerns Section Related Observation LastModified by Organization Detai ls LastModified Time None Recorded Concern Status LastModified by Organization Details LastModified Time None Recorded Advance Directives Directive None Recorded Payers Insurance Date Sequence Insurance Name Policy Number Policy Cali Covered Member ID Cali Member ID Guarantor Name 02/18/[address] [place] [address] [id number] Matthew Orozco [id number] Matthew Orozco Notes Date Note Type Note Provider Name and Address Organization Details Recorded Time 02/18/2022 text/html CoughReported bypatient.Quality:d ry Severity:moderate Duration:constant Timing:sudden Associated Symptoms:no fever; no chest pain; no heartburn; no nausea; no vomiting;chills Pt c/o cough, congestion and body aches x 3 days. Negative rapid covid test at home. Lala Sun MD [address] [place], [phone], [place] - [facility] 02/18/2022 15:20:57 OBGyn Episode No OBEpisode recorded.
[2024-07-18 14:15] VITALS: BMI 32.4
--- NOTE | 2024-07-18 14:15 | HO.SPINEOV ---
Vital Signs 07/18/24 14:15 Height 5 ft 5 in Weight 195 lb BMI 32.4 Intake Visit Reasons: LBP/Pedro Luis leg pain & numbness Intake Note: Ms. Ramos is here today c/o low back pain and bilateral leg pain/numbness. System Architect Required: No Allergies iodine [IODINE] Allergy (Severe, Verified 07/18/24 14:16) THROAT CLOSING povidone-iodine [From BETADINE] Allergy (Severe, Verified 07/13/24 12:07) THROAT CLOSING soap [From BETADINE] Allergy (Severe, Verified 07/13/24 12:07) THROAT CLOSING Shellfish Allergy (Unknown, Uncoded 07/13/24 12:07) rash Physical Exam Vital Signs: BMI result Body Mass Index 32.4 Assessment & Plan Assessment & Plan (1) Lumbar radiculopathy: Code(s): M54.16 - Radiculopathy, lumbar region Category: Medical Plan Dear OLGA Moya, Thank you for referring Matthew to our office today. 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 She reports this has been going on for about 10 days. She denies any known inciting incident, and states that she awoke on Thursday with significant leg pain, and found it difficult to stand. She ended up being evaluated 1st at urgent Care, then at [facility]. She ended up having an MRI of the lumbar spine completed at [facility] which showed a disc herniation. She comes in today for a follow-up from her MRI. She states that she has bilateral leg pain, worse on the right-hand side versus the left. When describing the shooting pains that she gets in her legs, she states that it feels like it starts in the calves and shoots up the backs of her bilateral legs terminating near the bilateral buttocks. She denies any numbness/tingling/burning associated with the pain. She denies any significant weakness associated with the pain. She does report that the pain has made it relatively difficult to walk, therefore a few days ago she purchased a walker, which she brings with her into the office today. She denies any issues with bowel/bladder incontinence, and denies any perineal numbness. She reports that she has been taking ibuprofen an effort to help mitigate the pain, but has not attempted any prescription medications as of yet. She has not attempted physical therapy, and has not been evaluated by pain management for cortisone injections. She denies any other conservative treatments. PMH: History of atrial septal defect, Obesity, Constipation, GERD Social hx: The patient smokes 1/2 pack cigarettes daily. Medications: See [employer] list. Allergies: Iodine, betadine, shellfish. Physical exam: The patient has some pain limited 4/5 strength with right-sided iliopsoas testing. The rest of her bilateral upper and lower extremity strength is 5/5. She ambulates independently very slowly, and has a somewhat disturbed gait, but does not appear to be antalgic, and is able to hold her balance well. She is able to rise from a seated position with the assistance of a chair, and is able to climb up onto the examination table without much issue. She has no significant sensational deficits on exam. Her bilateral patellar reflexes are 1+ hypoactive. The rest of her reflexes are 2+ intact. (-) bilateral straight leg raise. (-) clonus. (-) Smith's. Imaging review: MRI of the lumbar spine completed at [facility] shows a left sided lateral disc herniation at L5-S1 causing moderate-severe left-sided foraminal stenosis at this level. Impression: Matthew is a pleasant 34-year-old female who comes in today for evaluation of 10 days of bilateral lower extremity pain. She denies any known inciting incident for the pain. On MRI imaging she does have a lateral disc herniation at L5-S1 causing left-sided foraminal stenosis at this level. Interestingly I do not see any right-sided pathology on her MRI imaging, however she does disclosed right-sided symptoms. We occasionally will see this and disc herniation patients, however it is relatively abnormal. The distribution of her pain is in a S1 dermatomal distribution, however we also typically do not see pain that ascends versus descends. Given the patient's clinical presentation I do believe she is symptomatic from the disc herniation at L5-S1. She would most benefit from a course of conservative treatment via physical therapy and follow up with our colleagues in pain management. She lives in [place] so I will send her to [facility] for physical therapy. I will have her follow up with our colleagues in pain management for evaluation of possible cortisone injections thereafter. The patient understands that she should seek emergency services for any severe worsening pain, bowel/bladder incontinence, or perineal numbness. She may follow up with us again after conservative measures are attempted if her pain continues or worsens. Thank you for allowing us to care for your patient. The total time spent with this visit with this patient was 45 minutes reviewing history, physical exam, MRI imaging review, and implementation of treatment plan or further diagnostic testing David Landis MD,PhD [facility] Orders: Orders PT Evaluation and Treatment Today M54.16 - Radiculopathy, lumbar region Coding Level of Care Code New Pt Level 4 (42704) Diagnoses Lumbar radiculopathy M54.16
== END 2024-07-18 16:26 | disposition home or self-care (01) ==
LOC: HO.HNS 13:34
PROVIDERS: PCP Internal Medicine; Visit Provider Physician Assistant
DX: M54.16 Radiculopathy, lumbar region (principal)
CPT/HCPCS: 99204

== ENCOUNTER → 2024-07-18 13:33 | Outpatient (BNVA) | payer OTHER, SELFPAY | PROVIDERS: PCP Internal Medicine; Visit Provider Physician Assistant ==

== ENCOUNTER 2024-08-06 07:29 | Outpatient (REF) | payer OTHER, SELFPAY ==
[2024-08-06 07:50] LABS: MANUAL DIFF FLAG NO
[2024-08-06 08:54] LABS: Basophils Absolute Auto 0.1 X10*3/uL (0.0-0.2); Basophils Percent Auto 0.5 % (0-2); Eosinophils Absolute Auto 0.5 X10*3/uL (0.0-0.4); Eosinophils Percent Auto 4.9 % (0-4); Hematocrit 39.1 % (37.0-47.0); Hemoglobin 12.9 g/dl (12.0-16.0); Imm Gran Abs Auto 0.03 X10*3/uL (0.00-0.03); Imm Gran Pct Auto 0.3 % (0.0-0.4); Lymphocytes Absolute Auto 2.2 X10*3/uL (1.2-4.9); Lymphocytes Percent Auto 23.4 % (20-40); Mean Corpuscular Hemoglobin 28.8 pg (27.0-33.0); Mean Corpuscular Volume 87.3 fL (80.0-98.0); Mean Platelet Volume 8.9 fL (9.4-12.3); Monocytes Absolute Auto 0.8 X10*3/uL (0.1-1.2); Monocytes Percent Auto 8.1 % (2-11); Neutrophils Absolute Auto 5.8 x10*3/uL (2.0-8.3); Neutrophils Percent Auto 62.8 % (45-73); Platelet Count 528 X10*3/uL (160-400); Red Blood Count 4.48 X10*6/uL (4.20-5.50); Red Cell Distribution Width 12.9 % (11.0-16.0); White Blood Count 9.2 X10*3/uL (4.8-10.8)
[2024-08-06 09:08] LABS: Appearance Urine Clear; Color Urine Yellow; Glucose Urine UA Negative (Negative); Leukocyte Esterase Urine Negative (Negative); Nitrite Urine Negative (Negative); Urine Blood Negative (Negative); Urine Ketones Negative (Negative); Urine Protein Negative (Neg-Trace)
[2024-08-06 09:11] LABS: Estimated Average Glucose 114 mg/dL; Hemoglobin A1c % 5.6 % (<6.0); Total Hemoglobin (HGBA1C) 3305.8014 umol/L
[2024-08-06 09:49] LABS: Alanine Aminotransferase 27 U/L (0-31); Albumin Level 4.1 g/dL (3.5-5.0); Alkaline Phosphatase 79 U/L (39-117); Anion Gap 11 (12-20); Aspartate Amino Transferase 21 U/L (5-31); Bilirubin Total 0.3 mg/dL (0.0-1.0); Blood Urea Nitrogen 13 mg/dL (9-16); Calcium 9.4 mg/dL (8.4-10.2); Carbon Dioxide 29 mmol/L (22-29); Chloride 105 mmol/L (96-108); Cholesterol 133 mg/dL (<200); Estimated Glomerular Filt Rate > 60; Glucose Fasting 83 mg/dL (60-99); HDL Cholesterol 32 mg/dL (>40); LDL Cholesterol Calculated 87 mg/dL (<100); Potassium 4.4 mmol/L (3.3-5.1); Sodium 141 mmol/L (135-145); Total Protein 7.9 g/dL (6.5-8.0); Triglycerides 72 mg/dL (<150)
[2024-08-06 09:55] LABS: TSH reflex Free T4 1.21 uIU/mL (0.32-4.0); Vitamin D 25-OH Total 22.3 ng/mL (>30)
[2024-08-06 09:57] LABS: Folate 10.9 ng/mL (> or = 4.0); Vitamin B12 527 pg/mL (200-900)
[2024-08-09 18:13] LABS: Lyme Abs Screen <0.90 index
== END 2024-08-06 07:30 | disposition home or self-care (01) ==
LOC: HO.LAB 07:29
PROVIDERS: PCP Internal Medicine; Visit Provider Internal Medicine
DX: D64.9 Anemia, unspecified (principal); E78.00 Pure hypercholesterolemia, unspecified; E55.9 Vitamin D deficiency, unspecified; E53.8 Deficiency of other specified B group vitamins; R73.9 Hyperglycemia, unspecified; T14.8XXA Other injury of unspecified body region, initial encounter; M54.50 Low back pain, unspecified; R30.0 Dysuria
CPT/HCPCS: 36415; 80053; 80061; 81003; 82306; 82607; 82746; 83036; 84443; 85025; 86617; 86618

== ENCOUNTER 2024-10-10 10:31 | Emergency (ER) | payer OTHER, SELFPAY ==
[2024-10-10 10:35] VITALS: BP 139/87; PULSE 85; RESP 18; TEMP 36.5; O2SAT 100; BMI 33.4
--- NOTE | 2024-10-10 10:36 | ECG_ITS ---
Test Reason : SEIZURE Blood Pressure : */* mmHG Vent. Rate : 78 BPM Atrial Rate : 78 BPM P-R Int : 160 ms QRS Dur : 100 ms QT Int : 364 ms P-R-T Axes : 68 52 22 degrees QTcB Int : 414 ms Normal sinus rhythm Normal ECG When compared with ECG of 06-Aug-2009 14:28, No significant changes seen Referred By: Samreen Valadez Electronically Signed By: Reginaldo Khoury
--- NOTE | 2024-10-10 11:05 | ED.SYNCOPE ---
HPI - Syncope General Chief Complaint: Seizure Stated Complaint: Syncopal Episode Time Seen by Provider: 10/10/24 10:40 Source: patient Mode of arrival: wheelchair Limitations: no limitations History of Present Illness ED Provider: Kamla Myers PA-C HPI narrative: 34 yo female with history of thrombocytosis, chronic back pain w/ bulging disc, hx GERD, constipation, hx pre-ecclampsia in x2 who presents to the ER from Heme/onc office where she was getting labs done to follow up her platelets. She passed out and there was question of shaking activity afterward once she woke up. No post ictal state. No history of seizure. No history of syncope. She recalls feeling very hot at the time of blood draw and it was taking multiple sticks to get blood. She briefly passed out per report. No tongue biting, no incontinence. She reported a headache when she came to which has now resolved. She now c/o feeling tired and weak. She did not eat breakfast today. She denies N/V/D, abdominal pain, SOB, chest pain, focal weakness, vision changes, heavy vaginal bleeding. MD complaint: loss of consciousness Onset (ago): minute(s) -: second(s) Prodromal symptoms: lightheaded and other (feeling flushed and hot) Witnessed: Yes - by Bystander Context: other (during phlebotomy) Injuries sustained associated with event: none Current symptoms: weakness Treatments prior to arrival: none Related Data Previous Rx's ?Medication ?Instructions ?Recorded lansoprazole 30 mg capsule,delayed 30 mg PO DAILY 30 days #30 caps 07/13/24 release cyanocobalamin (vitamin B-12) 1,000 mcg sublingual DAILY #90 ea 09/09/24 1,000 mcg sublingual lozenge folic acid 1 mg tablet 1 mg PO DAILY #90 tabs 09/09/24 gabapentin 100 mg capsule 100 mg PO TID #90 caps 09/26/24 Allergies Allergy/AdvReac Type Severity Reaction Status Date / Time iodine (IODINE) Allergy Severe THROAT Verified 10/10/24 10:38 CLOSING povidone-iodine (From Allergy Severe THROAT Verified 10/10/24 10:38 BETADINE) CLOSING soap (From BETADINE) Allergy Severe THROAT Verified 10/10/24 10:38 CLOSING Shellfish Allergy Unknown rash Uncoded 10/10/24 10:38 Review of Systems Review of Systems: Yes all other systems are reviewed and are negative COUNTS INCLUDE 234 BEDS AT THE [facility] Past Medical History Medical History History of atrial septal defect Obesity (BMI 30-39.9) Constipation Smoker GERD (gastroesophageal reflux disease) Surgical History History of percutaneous transcatheter closure of congenital ASD Hx of section Family History Family History Maternal Grandmother Ovarian cancer Family/Other Ovarian cancer Social History Social History (Updated 09/05/24 @ 14:22 by Kyra Jensen) Household Members: Spouse and Family Housing: House Are you a primary chiropractic care to a significant other at home: Yes Do you presently have visiting nurse or other home services: No Alcohol intake: never Patient Tobacco Use Status: Current everyday Tobacco user Tobacco use type: Cigarette Cigarette Packs Per Day: 0.5 e-Cigarette/Vaping Use: Never Used Second Hand Smoke Exposure: Yes Substance Use Type: Marijuana Advance Directives: No Advance Directives Information Provided: No service: No Current occupational status: employed Current occupation: rt handed Cognitive needs: No Hearing needs: No Vision needs: Yes (Reading Glasses) Physical Exam Exam: Exam: Appearance: Alert. Oriented X3. No acute distress. Head: normocephalic, atraumatic. Eyes: Pupils equal, round and reactive to light. ENT: Pharynx normal. No tonsillar swelling or exudate. Neck: Normal inspection. Neck supple. CVS: Normal heart rate and rhythm. Pulses normal. Respiratory: No respiratory distress. Breath sounds normal. Abdomen: Soft and nontender. +BS x4 Skin: Skin warm and dry. Normal skin color. Normal skin turgor. No rashes. Extremities: No lower extremity edema. No joint swelling. Neuro/psych: Oriented X 3. No motor deficit. No sensory deficit. CN II-XII intact. Normal speech and cognition. Vital Signs: Vital Signs: Last Vital Signs Temp 97.3 F 10/10/24 12:09 Pulse 70 10/10/24 12:09 Resp 15 10/10/24 12:09 BP 122/79 10/10/24 12:09 Pulse Ox 97 10/10/24 12:09 O2 Del Method Room Air 10/10/24 12:09 BMI result Body Mass Index 33.4 Medications Administered Generic Name Dose Route Start Last Admin Trade Name Janell PRN Reason Stop Dose Admin Sodium Chloride 1,000 mls @ 999 mls/hr 10/10/24 12:30 10/10/24 12:31 Ns IVCONT 10/10/24 13:30 999 mls/hr .Q1H1M ELBERT Administration Medical Decision Making Medical Decision Making [facility] Narrative: 34-year-old female presents to the ER for evaluation after syncopal event during phlebotomy today. No history of similar presentations. There was a question of some shaking after the event. Spoke with Dr. Goldsmith who did not witness these movements. No reports of postictal state, incontinence, tongue biting. She is now back to baseline. Vital signs are stable. Orthostatic vital signs are negative. Labs show stable anemia, very mild thrombocytosis, very mild transaminitis. No right upper quadrant pain. She does have a mild GORDON, creatinine up to 1.2, was 0.6 in July. Given 1 L of IV fluids. Low suspicion for cardiac arrhythmia. Her response seems to be vasovagal in nature At this time comfortable discharge home with close follow-up with her PCP and social media community manager. Does not require medical admission at this time. Differential Diagnosis Differential Diagnoses: The differential diagnosis associated with the presentation includes vasovagal syncope, seizure, anemia, orthostatic hypotension, cardiac arrythmia Admission/Observation Consideration of admission/observation: Escalation of care including admission/observation considered Consult Healthcare Provider Management of the patient was discussed with: Freezing Room Worker Dr. Goldsmith from Hematology Lab Data [facility] Lab Attestation statement: I reviewed the patient's lab results. Stable anemia, mild thrombocytosis, leukocytosis, likely stress reaction, no evidence of infection 10/10/24 11:04 10/10/24 11:04 Labs: Lab Results 10/10/24 10/10/24 Range/Units 10:49 11:04 WBC 14.1 H (4.8-10.8) X10*3/uL RBC 3.99 L (4.20-5.50) X10*6/uL Hgb 11.4 L (12.0-16.0) g/dl Hct 33.7 L (37.0-47.0) % MCV 84.5 (80.0-98.0) fL MCH 28.6 (27.0-33.0) pg MCHC 33.8 (31.0-35.0) g/dl RDW 14.1 (11.0-16.0) % Plt Count 402 H D (160-400) X10*3/uL MPV 9.1 L (9.4-12.3) fL Immature Gran % (Auto) 0.4 (0.0-0.4) % Neut % (Auto) 66.6 (45-73) % Lymph % (Auto) 21.3 (20-40) % Irwin % (Auto) 8.1 (2-11) % Eos % (Auto) 3.2 (0-4) % Baso % (Auto) 0.4 (0-2) % Lymph # (Auto) 3.0 (1.2-4.9) X10*3/uL Irwin # (Auto) 1.1 (0.1-1.2) X10*3/uL Eos # (Auto) 0.5 H (0.0-0.4) X10*3/uL Baso # (Auto) 0.1 (0.0-0.2) X10*3/uL Abs Immat Gran (auto) 0.06 H (0.00-0.03) X10*3/uL Absolute Neuts (auto) 9.4 H (2.0-8.3) x10*3/uL Absolute Nucleated RBC 0.000 (0.0-0.012) X10*3/uL Nucleated RBC % (auto) 0.0 (0.0-0.2) /100WBC Sodium 141 (135-145) mmol/L Potassium 3.3 (3.3-5.1) mmol/L Chloride 105 (96-108) mmol/L Carbon Dioxide 26 (22-29) mmol/L Anion Gap 13 (12-20) BUN 18 H (9-16) mg/dL Creatinine 1.29 (0.5-1.4) mg/dL Estim Creat Clear Calc 71.7 Estimated GFR 48 Random Glucose 86 (60-115) mg/dL Calcium 9.2 (8.4-10.2) mg/dL Magnesium 1.9 (1.6-2.6) mg/dL Total Bilirubin 0.3 (0.0-1.0) mg/dL AST 38 H (5-31) U/L ALT 44 H (0-31) U/L Alkaline Phosphatase 76 (39-117) U/L Troponin I High Sens < 2.7 (<3.5-17.0) ng/L Total Protein 8.2 H (6.5-8.0) g/dL Albumin 4.4 (3.5-5.0) g/dL Beta HCG, Quant < 2 mIU/mL Influenza Type A (PCR) NEGATIVE (Negative) Influenza Type B (PCR) NEGATIVE (Negative) RSV RNA Qual (PCR) NEGATIVE (Negative) SARS-CoV-2 RNA (RT-PCR) NEGATIVE (Negative) Independent Interpretation I performed an independent interpretation of an: EKG Interpretation: EKG with normal sinus rhythm, ventricular rate 78 beats per minute, normal QTC, normal MI interval, no ST segment elevations or depressions External Record Review External record reviewed: Office record, Outpatient record, Prior outpatient labs and Prior outpatient radiology Prescription Management I considered prescription management with: Other (aspirin) Chronic Conditions Patient?s care impacted by: Other (thrombocytosis) Critical Care Time Critical Care Time Critical Care Time: No Discharge Plan Discharge Clinical Impression: Vasovagal syncope, GORDON (acute kidney injury) Patient Disposition: Home, Self-Care Instructions: Syncope (DC) Additional Instructions: Your likely passed out due to a vasovagal response. Your labs showed a stable anemia with a H&H of 11.4/33.7. Your platelets were mildly elevated at 402 (normal 160-400) Your liver enzymes were very mildly elevated as well. Your kidney function is also slightly increased from your baseline (creatinine is 1.29 today and was 0.67 in July). This is still technically normal range but is increasing. Make sure you are staying hydrated. We gave your 1 L IV fluids in the ER Follow up with your PCP If you develop new or worsening symptoms call 911 or come back to the ER for further evaluation. Prescriptions: No Action gabapentin 100 mg capsule 100 mg PO TID Qty: 90 0RF cyanocobalamin (vitamin B-12) 1,000 mcg Lozenge 1,000 mcg SUBLINGUAL DAILY Qty: 90 1RF folic acid 1 mg Tablet 1 mg PO DAILY Qty: 90 1RF lansoprazole 30 mg capsule,delayed release(DR/EC) 30 mg PO DAILY 30 Days Qty: 30 3RF [place] [facility] [place] Group] Garfield Estrada MD [Primary Care Provider, Internal Medicine] Discharge Date/Time: 10/10/24 13:32 Print Language: Venezuelan
[2024-10-10 11:14] LABS: MANUAL DIFF FLAG NO
--- NOTE | 2024-10-10 11:14 | PC.NURSE ---
U/S IV placed by BROOKLYNN and labs obtained d/t pt being a hard stick, which induced her issues this morning in oncology. Pt reporting relief of all her symptoms that she had after her outpt episode this morning in oncology. Pt encouraged to have PO intake at this time, orthostatic vitals ordered and to be obtained when pt is feeling more stable to stand. Pt remains on monitor at this time, call cadet within reach, seizure pads remain on bed.
[2024-10-10 11:15] LABS: Hematocrit 33.7 % (37.0-47.0); Hemoglobin 11.4 g/dl (12.0-16.0); Imm Gran Abs Auto 0.06 X10*3/uL (0.00-0.03); Imm Gran Pct Auto 0.4 % (0.0-0.4); Lymphocytes Absolute Auto 3.0 X10*3/uL (1.2-4.9); Mean Corpuscular HGB Conc 33.8 g/dl (31.0-35.0); Mean Corpuscular Hemoglobin 28.6 pg (27.0-33.0); Mean Corpuscular Volume 84.5 fL (80.0-98.0); NRBC Abs Auto 0.000 X10*3/uL (0.0-0.012); NRBC Pct Auto 0.0 /100WBC (0.0-0.2); Platelet Count 402 X10*3/uL (160-400); Red Blood Count 3.99 X10*6/uL (4.20-5.50); White Blood Count 14.1 X10*3/uL (4.8-10.8)
[2024-10-10 11:32] LABS: Resp Syncy Virus RNA Qual PCR NEGATIVE (Negative); SARS COV2 PCR INHOUSE NEGATIVE (Negative)
[2024-10-10 11:42] LABS: Alanine Aminotransferase 44 U/L (0-31); Albumin Level 4.4 g/dL (3.5-5.0); Alkaline Phosphatase 76 U/L (39-117); Anion Gap 13 (12-20); Aspartate Amino Transferase 38 U/L (5-31); Blood Urea Nitrogen 18 mg/dL (9-16); Calcium 9.2 mg/dL (8.4-10.2); Carbon Dioxide 26 mmol/L (22-29); Chloride 105 mmol/L (96-108); Creatinine Clr Calc Pharmacy 71.7; Estimated Glomerular Filt Rate 48; Magnesium 1.9 mg/dL (1.6-2.6); Potassium 3.3 mmol/L (3.3-5.1); Sodium 141 mmol/L (135-145); Total Protein 8.2 g/dL (6.5-8.0)
[2024-10-10 11:44] LABS: Troponin-I High Sensitivity < 2.7 ng/L (<3.5-17.0)
[2024-10-10 11:52] VITALS: BP 123/71; BP 127/77; PULSE 76; PULSE 87
[2024-10-10 11:53] VITALS: BP 136/78; PULSE 82
[2024-10-10 12:09] VITALS: BP 122/79; PULSE 70; RESP 15; TEMP 36.3; O2SAT 97
[2024-10-10 13:31] VITALS: BP 122/79; PULSE 70; RESP 15; TEMP 36.3; O2SAT 97
== END 2024-10-10 13:32 | disposition home or self-care (01) ==
PROVIDERS: Physician Assistant Medical; Emergency Provider Emergency Medicine; PCP Internal Medicine
DX: R55 Syncope and collapse (principal); M54.9 Dorsalgia, unspecified; D64.9 Anemia, unspecified; N17.9 Acute kidney failure, unspecified; E66.9 Obesity, unspecified; Z68.33 Body mass index [BMI] 33.0-33.9, adult; Z72.0 Tobacco use; Z79.899 Other long term (current) drug therapy
CPT/HCPCS: 80053; 83735; 84484; 84702; 85025; 87637; 93005; 99283; 99285

== ENCOUNTER → 2024-10-10 10:36 | Outpatient (BNV) | payer OTHER, SELFPAY | PROVIDERS: Emergency Provider Emergency Medicine; PCP Internal Medicine; Visit Provider Internal Medicine Cardiovascular Disease | DX: R56.9 Unspecified convulsions (principal) | CPT/HCPCS: 93010 ==

== ENCOUNTER 2024-10-14 09:22 | Outpatient (AMB) | payer OTHER, SELFPAY ==
[2024-10-14 09:25] VITALS: BP 140/80; PULSE 89; RESP 18; TEMP 36.1; O2SAT 96; BMI 33.0
--- NOTE | 2024-10-14 09:25 | A.OFFPC_ITS ---
Vital Signs 10/14/24 09:25 10/14/24 10:12 Height 5 ft 5 in Weight 198 lb 4 oz BMI 33.0 BP 140/80 H 128/82 Blood Pressure Location Lt brachial Lt brachial Position Sitting Left Lateral Respiration 18 Pulse 89 Pulse Source Pulse Oximeter Temp 97 F Temp Source Temporal Artery Scan Pulse Oximetry (%) 96 Oxygen Delivery Method Room Air Intake Visit Reasons: annual physical [employer] Lead Required: No Accompanied by: Self / Same As Patient Allergies iodine (IODINE) Allergy (Severe, Verified 10/14/24 09:37) THROAT CLOSING povidone-iodine (From BETADINE) Allergy (Severe, Verified 10/14/24 09:37) THROAT CLOSING soap (From BETADINE) Allergy (Severe, Verified 10/14/24 09:37) THROAT CLOSING Shellfish Allergy (Unknown, Uncoded 10/14/24 09:37) rash Medication List - Last Reconciled 10/14/24 by TEODORO Jones-Pao cyanocobalamin (vitamin B-12) 1,000 mcg sublingual DAILY folic acid 1 mg PO DAILY gabapentin 100 mg PO TID lansoprazole 30 mg PO DAILY 30 days Tobacco use date assessed: 10/14/24 Dental Screening Dental Screen Date: 10/14/24 Did you have a dental visit in the last 12 months?: No Did you have a dental problem in the last 6 months where you did not have access to dental care?: No Was dental information given to patient?: Patient has dentist HPI annual physical HPI Details Dentist: has appt in November Eye: not in long time, used to wear reading glasses Snellen: Right: Left: Corrected vision: no STI screening: Colonoscopy: Pap Smer: up to date [facility] PHQ-9: Flu: no COVID: x2 Tdap:2021 Diet: Regular Exercise: Not at the moment Patient is a 33-year-old female presenting for annual physical Recent labs reviewed with the patient. Patient reports that while obtaining blood work she had a syncopal episode and was [place] [facility] [place] There were questions of seizure-like activity, but no evidence of seizure was noted. The patient did not have any postictal phase. No incontinence, no biting of tongue, and no altered mental status. Per patient, they were having trouble locating her vein and she was stuck multiple times. Suspicion of overstimulation that led to a vasovagal event. The patient has been seeing Hematology due to elevated platelet counts. Her recent kidney function also noted to be elevated for her age attributed to poor p.o. intake or ongoing inflammation or autoimmue conditions. The patient experiences peripheral edema in her lower extremities, feet, ankle and her knees as well. She was noted to have a positive LUCA, given her recurrent joint swollen. She was referred to rheumatology and has an appointment pending. The patient also experienced shooting pain and weakness in her extremities intermittently, which has improved with gabapentin treatment. Even though, she complaints of brain fog while taking the daytime dose of gabapentin. Discussion of trying to only take the gabapentin at night to see if her brain fog resolves. Explained to the patient that she could take 200 mg at night 1st, then could try taking the whole 300 mg at night if the shooting pain increased. The patient is also taking B12 supplement in his wondering if she still needs to take this medications insulin levels are normal. 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 Do you presently have visiting nurse or other home services: No Alcohol intake: never Patient Tobacco Use Status: Current everyday Tobacco user Tobacco use type: Cigarette Cigarette Packs Per Day: 0.5 e-Cigarette/Vaping Use: Never Used Second Hand Smoke Exposure: Yes Substance Use Type: Marijuana service: No Current occupational status: employed Current occupation: rt handed Cognitive needs: No Hearing needs: No Vision needs: Yes (Reading Glasses) Female Reproductive History Menstrual Age of Menarche: 12 Questionnaire PHQ-9 Over the last 2 weeks, how often have you been bothered by any of the following problems? 1. Little interest or pleasure in doing things: not at all 2. Feeling down, depressed, or hopeless: not at all 3. Trouble falling or staying asleep, or sleeping too much: not at all 4. Feeling tired or having little energy: several days 5. Poor appetite or overeating: several days 6. Feeling bad about yourself - or that you are a failure or have let yourself or your family down: not at all 7. Trouble concentrating on things, such as reading the newspaper or watching television: not at all 8. Moving or speaking so slowly that other people could have noticed. Or the opposite - being so fidgety or restless that you have been moving around a lot more than usual: several days 9. Thoughts that you would be better off or of hurting yourself in some way: not at all Total score: 3 Depression Screening Interpretation: Positive Depression Screening Done: Yes 56658 - PHQ-9 Billing: Yes Source: Developed by Drs. Ryder Olivo, Iris Schaefer, Bryan Loaiza and colleagues, with an educational joelle from [employer]. Thrive Questionnaire Date Thrive assessed: 10/14/24 I am a: Patient What is your living situation today?: I have a steady place to live Within the past 12 months, did the food you bought not last and you didn't have the money to get more?: Never true Within the past 12 months, did you worry whether your food would run out before you got money to buy more?: Never true Do you have trouble paying for medicines?: No Do you have trouble getting transportation to medical appointments?: No Do you have trouble paying your heating and electricity bill?: No Do you have trouble taking care of your child, family member or friend?: No Do you have trouble with day-to-day activities such as bathing, preparing meals, shopping, managing finances, etc.?: No Are you currently unemployed and looking for a job?: No Are you interested in more education?: No Please select the resources that you would like help with: None Currently or been in a relationship where the following occur: No concerns reported THRIVE Score: 0 AUDIT C Alcohol Use Questionnaire (AUDIT-C) 1. How often do you have a drink containing alcohol?: Never Total Score: 0 GENI-7 AMB Questionnaire GENI-7 Date EGNI - 7 assessed: 10/14/24 Feeling nervous, anxious, or on edge: 0 = Not at all Not being able to stop or control worryin = Not at all Worrying too much about different things: 0 = Not at all Trouble relaxin = Not at all Being so restless that it is hard to sit still: 0 = Not at all Becoming easily annoyed or irritable: 1 = Several days Feeling afraid as if something awful might happen: 0 = Not at all Total GENI-7 score (0-4 normal; 5-9 mild; 10-14 moderate; 15-21 severe): 1 Source: Developed by Drs. Ryder Olivo, Iris Schaefer, Bryan Loaiza and colleagues, with an educational joelle from [employer]. Review of Systems Const Denies headache(s) Eyes Denies loss of vision ENT Denies vertigo, Denies dizziness, Denies headache(s) and Denies sore throat Card Denies chest pain, Reports leg edema (Intermittent has improved lately) and Denies lightheadedness Resp Denies cough, Denies hemoptysis and Denies wheezing GI Denies abdominal pain, Denies melena, Reports constipation (On and off), Denies diarrhea and Denies vomiting Denies urinary frequency, Denies dysuria and Denies urinary urgency Musc Denies arthralgias, Reports joint swelling (Intermittent knees and ankles), Denies numbness, Denies tingling and Reports other (On and off shooting pain down legs that improved with treatment) Neuro Denies Abnormal speech present, Denies behavioral changes, Denies vertigo, Denies dizziness, Denies headache(s), Denies loss of vision, Denies memory loss, Denies numbness and Denies tingling Psych Denies anxiety, Denies behavioral changes, Denies depression, Denies memory loss and Denies panic attacks Zay/Lymph Denies easy bleeding and Denies easy bruising Aller/Immun Denies wheezing Physical exam (Primary Care) Vital Signs: Last Vital Signs Temp 97 F 10/14/24 09:25 Pulse 89 10/14/24 09:25 Resp 18 10/14/24 09:25 BP 128/82 10/14/24 10:12 Pulse Ox 96 10/14/24 09:25 Oxygen Delivery Method Room Air 10/14/24 09:25 BMI result Body Mass Index 33.0 Tobacco/Smoking Status: Tobacco use Status Tobacco use date assessed 10/14/24 10/14/24 09:32 Patient Tobacco Use Status Current everyday Tobacco 10/14/24 09:32 Tobacco use type Cigarette 10/14/24 09:32 e-Cigarette/Vaping Use Never Used 10/14/24 09:32 PHQ-9: PHQ-9 Score PHQ-9: Total score 3 10/15/24 00:52 Depression Screening Interpretation: Positive Thrive Assessment: Date of Thrive Assessment Date Thrive assessed 10/14/24 10/14/24 09:32 Currently or been in a relationship where the following occur: No concerns reported Const General: healthy appearing, no acute distress, alert and awake Nutritional Appearance: well nourished Orientation/consciousness: oriented to person, oriented to place and oriented to time HENMT Ears: TM's normal bilaterally General nose exam: Normal nasal mucous membranes and turbinates present Eyes Conjunctivae: conjunctivae normal Sclerae: sclerae normal Pupils: Equal, round and reactive pupils present Neck Neck: Yes no lymphadenopathy and Yes no JVD Thyroid: Thyroid normal Carotids: no bruits Resp Effort & Inspection: normal respiratory effort and not tachypneic Auscultation: no crackles, no rales, no rhonchi and no wheezes Cardio Rate: regular rate Rhythm: regular rhythm Heart sounds: no murmurs and normal S1 and S2 GI Palpation (GI): Soft to palpation, nontender, no hepatomegaly and no splenomegaly Auscultation: normal bowel sounds Skin General skin exam: no rashes or lesions noted and dry skin Neuro General: oriented to person, oriented to place and oriented to time Cranial nerves: Yes Equal, round and reactive pupils present Speech: No Abnormal speech present Gait exam (Neuro): Normal gait present Motor exam (neuro): no tremor noted Deep tendon reflexes (DTR's): Right triceps reflex intensity grade: 2+, Left triceps reflex intensity grade: 2+, Rt Biceps (C5, C6): 2+, Left biceps reflex intensity grade: 2+, Right brachioradialis reflex intensity grade: 2+, Left brachioradialis reflex intensity grade: 2+, Right patellar reflex intensity grade: 2+ and Left patellar reflex intensity grade: 2+ Extrem Right upper extremity: full ROM Left upper extremity: full ROM Right lower extremity: full ROM; no edema Left lower extremity: full ROM; no edema Psych Mental Status: mental status grossly normal Speech and movement: Normal speech and movement present Affect: normal affect Attitude: cooperative Thought process: Normal thought process present Results Reviewed Results Reviewed: Laboratory Tests 08/06/24 08/06/24 09/05/24 07:46 07:47 14:10 WBC RBC Hgb Hct MCV MCH MCHC RDW Plt Count MPV Immature Gran % (Auto) Neut % (Auto) Lymph % (Auto) Sodium Potassium Chloride Carbon Dioxide Anion Gap BUN Creatinine 0.67 1.22 Estim Creat Clear Calc 73.0 Estimated GFR 51 Random Glucose Fasting Glucose 79 Hemoglobin A1c % 5.6 Calcium 9.4 Magnesium Iron 39 TIBC 257 % Saturation 15 Unsat Iron Binding 218 Ferritin 126 H Total Bilirubin 0.2 AST 19 ALT 23 Alkaline Phosphatase 92 Lactate Dehydrogenase 211 Troponin I High Sens C-Reactive Protein 1.68 H Total Protein 8.0 Albumin 4.2 Triglycerides 72 Cholesterol 133 LDL Cholesterol, Calc 87 HDL Cholesterol 32 L Vitamin B12 527 380 25-OH Vitamin D Total 22.3 L Folate 10.9 TSH 1.21 Beta HCG, Quant Urine Color Yellow Urine Appearance Clear Urine pH 8.0 Ur Specific [place] 1.020 Urine Protein Negative Urine Glucose (UA) Negative Urine Ketones Negative Urine Blood Negative Urine Nitrite Negative Ur Leukocyte Esterase Negative 10/10/24 11:04 WBC 14.1 H RBC 3.99 L Hgb 11.4 L Hct 33.7 L MCV 84.5 MCH 28.6 MCHC 33.8 RDW 14.1 Plt Count 402 H D MPV 9.1 L Immature Gran % (Auto) 0.4 Neut % (Auto) 66.6 Lymph % (Auto) 21.3 Sodium 141 Potassium 3.3 Chloride 105 Carbon Dioxide 26 Anion Gap 13 BUN 18 H Creatinine 1.29 Estim Creat Clear Calc Estimated GFR 48 Random Glucose 86 Fasting Glucose Hemoglobin A1c % Calcium 9.2 Magnesium 1.9 Iron TIBC % Saturation Unsat Iron Binding Ferritin Total Bilirubin 0.3 AST 38 H ALT 44 H Alkaline Phosphatase 76 Lactate Dehydrogenase Troponin I High Sens < 2.7 C-Reactive Protein Total Protein 8.2 H Albumin 4.4 Triglycerides Cholesterol LDL Cholesterol, Calc HDL Cholesterol Vitamin B12 25-OH Vitamin D Total Folate TSH Beta HCG, Quant < 2 Urine Color Urine Appearance Urine pH Ur Specific [place] Urine Protein Urine Glucose (UA) Urine Ketones Urine Blood Urine Nitrite Ur Leukocyte Esterase Coding Level of Care Code Est Pt Prev Care 18-39y([id number]) Diagnoses Annual physical exam Z00.00 Smoker F17.200 Leg numbness R20.0 Lumbar radiculopathy M54.16 Other intervertebral disc displacement, lumbar region M51.26 Weakness of right lower extremity R29.898 Laterality: right Bilateral leg pain M79.604; M79.605 Low back pain without sciatica, unspecified back pain laterality, unspecified chronicity M54.50 Chronicity: unspecified Back pain laterality: unspecified Sciatica presence: without sciatica Thrombocytosis D75.839 Constipation, unspecified constipation type K59.00 Constipation type: unspecified constipation type Gastroesophageal reflux disease without esophagitis K21.9 Esophagitis presence: without esophagitis Obesity (BMI 30-39.9) E66.9 Positive LUCA (antinuclear antibody) R76.8 Decreased renal function N28.9 Syncope, unspecified syncope type R55 Syncope type: unspecified Additional Codes PHQ-9 - 13800 - PHQ-9 Billing: Yes ([id number]) Time Spent (min) 41 Assessment & Plan Assessment & Plan (1) Annual physical exam: Code(s): Z00.00 - Encounter for general adult medical examination without abnormal findings Category: Medical (2) Smoker: Code(s): F17.200 - Nicotine dependence, unspecified, uncomplicated Category: Social Hx (3) Leg numbness: Code(s): R20.0 - Anesthesia of skin Category: Medical (4) Lumbar radiculopathy: Code(s): M54.16 - Radiculopathy, lumbar region Category: Medical (5) Other intervertebral disc displacement, lumbar region: Code(s): M51.26 - Other intervertebral disc displacement, lumbar region Category: Medical (6) Leg weakness: Code(s): R29.898 - Other symptoms and signs involving the musculoskeletal system Category: Medical Qualifiers: Laterality: right Qualified Code(s): R29.898 - Other symptoms and signs involving the musculoskeletal system (7) Bilateral leg pain: Code(s): M79.604 - Pain in right leg; M79.605 - Pain in left leg Category: Medical (8) Low back pain: Code(s): M54.50 - Low back pain, unspecified Category: Medical Qualifiers: Chronicity: unspecified Back pain laterality: unspecified Sciatica presence: without sciatica Qualified Code(s): M54.50 - Low back pain, unspecified (9) Thrombocytosis: Code(s): D75.839 - Thrombocytosis, unspecified Category: Medical (10) Constipation: Code(s): K59.00 - Constipation, unspecified Category: Medical Qualifiers: Constipation type: unspecified constipation type Qualified Code(s): K59.00 - Constipation, unspecified (11) GERD (gastroesophageal reflux disease): Code(s): K21.9 - Gastro-esophageal reflux disease without esophagitis Category: Medical Qualifiers: Esophagitis presence: without esophagitis Qualified Code(s): K21.9 - Gastro-esophageal reflux disease without esophagitis (12) Obesity (BMI 30-39.9): Code(s): E66.9 - Obesity, unspecified Category: Medical (13) Positive LUCA (antinuclear antibody): Code(s): R76.8 - Other specified abnormal immunological findings in serum Category: Medical (14) Decreased renal function: Code(s): N28.9 - Disorder of kidney and ureter, unspecified Category: Medical (15) Episode of syncope: Code(s): R55 - Syncope and collapse Category: Medical Qualifiers: Syncope type: unspecified Qualified Code(s): R55 - Syncope and collapse Plan The patient was referred by hematology to a tire setter for further evaluation of the positive LUCA and associated symptoms. Monitoring of kidney function will continue, with emphasis on hydration to potentially improve results and avoiding nephrotoxic drugs. The patient is advised to adjust gabapentin dosage to minimize side effects, taking it primarily at night to reduce drowsiness during the day. Follow-up lab work will be conducted to monitor anemia, liver enzymes, and platelet levels. The patient is encouraged to maintain regular preventative care appointments, including dental and eye exams. Blood pressure monitoring is recommended, given the recent elevation, and lifestyle modifications such as increased water intake are suggested to support kidney health. The patient is advised to report any new or worsening symptoms promptly. Chronic back and lower leg pain have improved and the patient is feeling much better on current treatment. Reinforced dietary restrictions. Continue lansoprazole 30 mg daily. Continue B12 supplement which will help with paresthesia along with memory/brain fog. Patient was informed and verbally consented to the use of an ambient scribe for clinic note documentation during this visit. Orders: Orders Complete Blood Count Auto Diff 4 Months D7.839 - Thrombocytosis, unspecified, E66.9 - Obesity, unspecified, F17.200 - Nicotine dependence, unspecified, uncomplicated, K21.9 - Gastro-esophageal reflux disease without esophagitis, K59.00 - Constipation, unspecified, M79.604 - Pain in right leg, M79.605 - Pain in left leg, R20.0 - Anesthesia of skin, R29.898 - Other symptoms and signs involving the musculoskeletal system Comprehensive [place]. Panel Fast 4 Months D7.839 - Thrombocytosis, unspecified, E66.9 - Obesity, unspecified, F17.200 - Nicotine dependence, unspecified, uncomplicated, K21.9 - Gastro-esophageal reflux disease without esophagitis, K59.00 - Constipation, unspecified, M79.604 - Pain in right leg, M79.605 - Pain in left leg, R20.0 - Anesthesia of skin, R29.898 - Other symptoms and signs involving the musculoskeletal system UA CC w/rflx Micro + Cult 4 Months D7.839 - Thrombocytosis, unspecified, E66.9 - Obesity, unspecified, F17.200 - Nicotine dependence, unspecified, uncomplicated, K21.9 - Gastro-esophageal reflux disease without esophagitis, K59.00 - Constipation, unspecified, M79.604 - Pain in right leg, M79.605 - Pain in left leg, R20.0 - Anesthesia of skin, R29.898 - Other symptoms and signs involving the musculoskeletal system Ferritin 4 Months D7.839 - Thrombocytosis, unspecified, E66.9 - Obesity, unspecified, F17.200 - Nicotine dependence, unspecified, uncomplicated, K21.9 - Gastro-esophageal reflux disease without esophagitis, K59.00 - Constipation, unspecified, M79.604 - Pain in right leg, M79.605 - Pain in left leg, R20.0 - Anesthesia of skin, R29.898 - Other symptoms and signs involving the musculoskeletal system Lipid Panel 4 Months D7.839 - Thrombocytosis, unspecified, E66.9 - Obesity, unspecified, F17.200 - Nicotine dependence, unspecified, uncomplicated, K21.9 - Gastro-esophageal reflux disease without esophagitis, K59.00 - Constipation, unspecified, M79.604 - Pain in right leg, M79.605 - Pain in left leg, R20.0 - Anesthesia of skin, R29.898 - Other symptoms and signs involving the musculoskeletal system TSH reflex Free T4 4 Months D75.839 - Thrombocytosis, unspecified, E66.9 - Obesity, unspecified, F17.200 - Nicotine dependence, unspecified, uncomplicated, K21.9 - Gastro-esophageal reflux disease without esophagitis, K59.00 - Constipation, unspecified, M79.604 - Pain in right leg, M79.605 - Pain in left leg, R20.0 - Anesthesia of skin, R29.898 - Other symptoms and signs involving the musculoskeletal system Vitamin D 25-OH Total 4 Months D75.839 - Thrombocytosis, unspecified, E66.9 - Obesity, unspecified, F17.200 - Nicotine dependence, unspecified, uncomplicated, K21.9 - Gastro-esophageal reflux disease without esophagitis, K59.00 - Constipation, unspecified, M79.604 - Pain in right leg, M79.605 - Pain in left leg, R20.0 - Anesthesia of skin, R29.898 - Other symptoms and signs involving the musculoskeletal system
[2024-10-14 10:12] VITALS: BP 128/82
== END 2024-10-14 10:20 | disposition home or self-care (01) ==
LOC: HO.HMCH 09:23
PROVIDERS: PCP Internal Medicine
DX: Z00.00 Encounter for general adult medical examination without abnormal findings (principal); F17.200 Nicotine dependence, unspecified, uncomplicated; R20.0 Anesthesia of skin; M54.16 Radiculopathy, lumbar region; M51.26 Other intervertebral disc displacement, lumbar region; R29.898 Other symptoms and signs involving the musculoskeletal system; E66.9 Obesity, unspecified; Z68.33 Body mass index [BMI] 33.0-33.9, adult; M79.604 Pain in right leg; M79.605 Pain in left leg; M54.50 Low back pain, unspecified; D75.839 Thrombocytosis, unspecified

== ENCOUNTER → 2024-10-14 09:22 | Outpatient (BNVA) | payer OTHER, SELFPAY | PROVIDERS: PCP Internal Medicine | DX: Z00.00 Encounter for general adult medical examination without abnormal findings (principal); R20.0 Anesthesia of skin; R60.0 Localized edema; M54.16 Radiculopathy, lumbar region; M51.26 Other intervertebral disc displacement, lumbar region; R29.898 Other symptoms and signs involving the musculoskeletal system; M79.605 Pain in left leg; D75.839 Thrombocytosis, unspecified; K59.00 Constipation, unspecified; K21.9 Gastro-esophageal reflux disease without esophagitis; E66.9 Obesity, unspecified; R76.8 Other specified abnormal immunological findings in serum; N28.9 Disorder of kidney and ureter, unspecified; R55 Syncope and collapse; F17.210 Nicotine dependence, cigarettes, uncomplicated; Z68.33 Body mass index [BMI] 33.0-33.9, adult | CPT/HCPCS: 96127 ==

== ENCOUNTER 2025-02-20 09:39 | Outpatient (REF) | payer OTHER, SELFPAY ==
--- NOTE | ~2025-02-20 | XR_ITS ---
EXAMINATION: XR CHEST 2 VIEWS HISTORY: J98.8 - Other specified respiratory disorders COMPARISON: There are no prior studies available for comparison. FINDINGS: PA and lateral views of the chest are submitted. The lungs are expanded and clear. There is no pleural effusion, pneumothorax, or pulmonary vascular congestion. The heart is normal in size. The bones are intact. XR/XR chest 2V IMPRESSION: Normal examination of the chest. Electronically signed by: Ryder Harper MD 02/20/2025 12:41 PM EST
[2025-02-20 11:10] LABS: MANUAL DIFF FLAG NO
[2025-02-20 11:35] LABS: Hematocrit 41.6 % (37.0-47.0); Hemoglobin 13.9 g/dl (12.0-16.0); Imm Gran Abs Auto 0.04 X10*3/uL (0.00-0.03); Imm Gran Pct Auto 0.3 % (0.0-0.4); Lymphocytes Absolute Auto 3.2 X10*3/uL (1.2-4.9); Mean Corpuscular HGB Conc 33.4 g/dl (31.0-35.0); Mean Corpuscular Hemoglobin 29.8 pg (27.0-33.0); Mean Corpuscular Volume 89.3 fL (80.0-98.0); NRBC Abs Auto 0.000 X10*3/uL (0.0-0.012); NRBC Pct Auto 0.0 /100WBC (0.0-0.2); Platelet Count 453 X10*3/uL (160-400); Red Blood Count 4.66 X10*6/uL (4.20-5.50); Reticulocytes Absolute 0.044 X10*6/uL (0.026-0.095); White Blood Count 11.9 X10*3/uL (4.8-10.8)
[2025-02-20 11:39] LABS: Appearance Urine Clear; Glucose Urine UA Negative (Negative); PH 7.0 (5.0-9.0); Specific Gravity - Urine 1.020 (1.005-1.025)
[2025-02-20 12:11] LABS: Alanine Aminotransferase 23 U/L (0-31); Albumin Level 4.7 g/dL (3.5-5.0); Alkaline Phosphatase 71 U/L (39-117); Anion Gap 13 (12-20); Aspartate Amino Transferase 27 U/L (5-31); Blood Urea Nitrogen 13 mg/dL (9-16); Calcium 9.5 mg/dL (8.4-10.2); Carbon Dioxide 26 mmol/L (22-29); Chloride 107 mmol/L (96-108); Cholesterol 151 mg/dL (<200); Estimated Glomerular Filt Rate > 60; HDL Cholesterol 45 mg/dL (>40); Iron 71 mcg/dL (30-160); Percent Iron Saturation 24 % (15-50); Potassium 3.9 mmol/L (3.3-5.1); Sodium 142 mmol/L (135-145); Total Iron Binding Capacity 301 mcg/dL (228-428); Total Protein 8.0 g/dL (6.5-8.0); Triglycerides 74 mg/dL (<150); Unsaturated Iron Binding 230 ug/dL
[2025-02-20 12:22] LABS: ~HepC Num1 0.13 S/CO (0.00-0.79); ~Hepatitis C Antibody Nonreactive (Nonreactive)
[2025-02-20 12:39] LABS: Folate > 20.0 ng/mL (> or = 4.0); Vitamin B12 668 pg/mL (200-900)
--- OUTSIDE RECORDS SUMMARY | 2025-02-20 13:30 | XMS_ITS | Data Portability ---
Author Organization [facility], [address] Address [address] [place] [address] Assessment No assessment recorded. Plan of Treatment Reminders Order Date Submit Date Provider Last Modified By Organization Details Last Modified Time Details Appointments None recorded. Lab rapid flu (A+B) 2021 [email or web address], [address] [place], [address], 15:14:26 Referral None recorded. Procedures None recorded. Surgeries None recorded. Imaging None recorded. Medication Orders Tamiflu 75 mg capsule 2021 [id number], [address] [place], [address], 15:19:22 albuterol sulfate HFA 90 mcg/actuati on aerosol inhaler 2021 [id number], [address] [place], [address], 15:19:22 prednisone 10 mg tablet 2021 [id number], [address] [place], [address], 15:19:23 Patient TargetsNo targets recorded. Patient Instructions Encounter Date Encounter Id Patient Instructions Last Modified By Organization Details Last Modified Time 02/18/2022 [id number] influenza (flu): care instructions Not available 02/18/2022 [...] Analyte Normal = Negati ve Not Available [facility], [address], 02/18/2022 15:13:35 02/19/20 22 02/18/2022 rapid flu (A+B) Unknown Analyte positi ve Not Available [facility] [address] [place] [address], [phone], 02/18/2022 15:13:35 02/19/20 22 02/18/2022 rapid flu (A+B) Unknown Analyte Normal = Negati ve Not Available [facility] [address] [address] [place] [address], [phone], 02/18/2022 15:13:35 02/19/20 22 02/18/2022 rapid flu (A+B) Unknown Analyte negati ve Not Available [address] [place], [address], 02/18/2022 15:13:35 Result Notes None recorded. Problems No Known Problems Medical Equipment None Reported. Allergies Allergen ID Allergen Name Allergen Category Reaction Reaction Severity Criticality Documentation Date Start Date Code Code System Note Provider Name and Address Organization Details Recorded Time 67701 iodine medicatio n Not available Not available Not available 02/18/2022 5933 RxNorm [facility] 14:34:06 Medications Name Sig Start Date Stop [...] mass index (BMI) Body weight Oxygen saturation Heart rate Respiratory rate Body temperature Systolic And Diastolic Provider Name and Address Organization Details Last Updated DateTime 2 165.1 cm 36.6 kg/m2 16422.3 2 g 97 % 108 /min 18 /min 98.7 [degF] 143/85 mm[Hg] Alex Jameson [facility] 2 14:36:18 Social History Question Answer Notes [...] 30 mcg/0.3 mL dose 06/22/2020 completed Alex Park null, [place] - [facility] 02/18/2022 14:33:45 Tdap 07/06/2017 completed Alex Park null, [place] - [facility] 02/18/2022 14:33:45 Tdap 04/04/2021 completed Alex ruiz, [place] - [facility] 02/18/2022 14:33:45 COVID-19, mRNA, LNP-S, PF, 30 mcg/0.3 mL dose 05/30/2020 completed Alex Park null, [place] - [facility] 02/18/2022 14:33:45 Past Encounters Encounter ID Performer Location Encounter Start Date Encounter Closed Date Diagnosis/Indication Diagnosis SNOMED-CT Code Diagnosis ICD10 Code Diagnosis IMO Codes Diagnosis Note [id number] [address] [address] [place] [phone] 02/25/2021 08:08:13 02/25/2021 09:06:[id number] [address] [address] [place] [id number] 02/05/2021 08:03:11 02/05/2021 09:36:45 [id number] [address] [place] [id number] 7 10/15/2017 18:35:09 10/15/2017 19:01:19 [id number] [facility] [address] [place] [phone] 03/05/2018 08:04:29 03/05/2018 09:07:23 [id number] [facility] [address] [place] [id number] 7 2020 16:14:37 2020 18:02:12 [id number] [facility] [address] [place] [id number] 06/06/2017 12:16:35 06/06/2017 13:34:[id number] [place] [address] [address] [address] [place] [phone] 03/07/2021 08:08:03 03/07/2021 09:05:[id number] [place] [address] [facility] [address] [place] [id number] 08/18/2021 17:29:53 08/18/2021 18:07:50 [id number] Lala Sun [place] [address] [address] [place] [id number] 02/18/2022 10:27:47 02/18/2022 15:20:35 Influenza caused by Influenza A virus [id number] J09.X2 Health Concerns Section Related Observation LastModified by Organization Detai ls LastModified Time None Recorded Concern Status LastModified by Organization Details LastModified Time None Recorded Advance Directives Directive None Recorded Payers Insurance Date Sequence Insurance Name Policy Number Policy Cali Covered Member ID Cali Member ID Guarantor Name 02/18/[address] [place] [address] [id number] Matthew Orozco [id number] Matthew Orozco Notes Date Note Type Note Provider Name and Address Organization Details Recorded Time 02/18/2022 text/html CoughReported by PatientHPIFor quality, patient reportsdry. For associated symptoms, patient reportschillsbut reportsno fever,no chest pain,no heartburn,no nausea, andno vomiting. For severity, patient reportsmoderate. For duration, patient reportsconstant. For timing, patient reportssudden. Pt c/o cough, congestion and body aches x 3 days. Negative rapid covid test at home. Lala Sun MD [address] [facility] [place], [address], [place] - [facility] 02/18/2022 15:20:57 OBGyn Episode No OBEpisode recorded.
[2025-02-21 17:43] LABS: Lyme Abs Screen <0.90 index
[2025-02-27 14:09] LABS: Anti Nuclear Antibody Screen POSITIVE (NEGATIVE); Anti Nuclear Antibody Titer 1:80 titer
== END 2025-02-20 09:40 | disposition home or self-care (01) ==
LOC: HO.LAB 09:39
PROVIDERS: PCP Internal Medicine; Visit Provider Internal Medicine
DX: E78.00 Pure hypercholesterolemia, unspecified (principal); E55.9 Vitamin D deficiency, unspecified; M25.50 Pain in unspecified joint; D50.9 Iron deficiency anemia, unspecified; D64.9 Anemia, unspecified; R30.0 Dysuria; E53.8 Deficiency of other specified B group vitamins; J98.8 Other specified respiratory disorders; K21.9 Gastro-esophageal reflux disease without esophagitis; D75.839 Thrombocytosis, unspecified; R55 Syncope and collapse; M51.360 Other intervertebral disc degeneration, lumbar region with discogenic back pain only; R76.89 Other specified abnormal immunological findings in serum; E66.9 Obesity, unspecified; Z68.32 Body mass index [BMI] 32.0-32.9, adult; F17.200 Nicotine dependence, unspecified, uncomplicated; Z71.6 Tobacco abuse counseling; Z71.3 Dietary counseling and surveillance
CPT/HCPCS: 36415; 71046; 80053; 80061; 81003; 82306; 82607; 82746; 83540; 84443; 85025; 85045; 85652; 86038; 86039; 86140; 86431; 86617; 86618; 86803

== ENCOUNTER 2025-02-20 09:39 | Outpatient (AMB) | payer OTHER, SELFPAY ==
--- NOTE | 2025-02-20 10:01 | A.OFFPC_ITS ---
Vital Signs 02/20/25 10:02 Height 5 ft 5 in Weight 194 lb 8 oz BMI 32.4 BP 130/82 Blood Pressure Location Lt brachial Position Sitting Respiration 14 Pulse 90 Pulse Source Pulse Oximeter Temp 98.1 F Temp Source Tympanic Pulse Oximetry (%) 98 Oxygen Delivery Method Room Air Intake Visit Reasons: bilateral leg pain/numbness/thombocytosis with Dr. Claros iodine (IODINE) Allergy (Severe, Verified 02/20/25 10:20) THROAT CLOSING povidone-iodine (From BETADINE) Allergy (Severe, Verified 02/20/25 10:20) THROAT CLOSING soap (From BETADINE) Allergy (Severe, Verified 02/20/25 10:20) THROAT CLOSING Shellfish Allergy (Unknown, Uncoded 02/20/25 10:20) rash Medication List - Last Reconciled 02/20/25 by Garfield Estrada MD cyanocobalamin (vitamin B-12) 1,000 mcg sublingual DAILY folic acid 1 mg PO DAILY gabapentin 100 mg PO TID lansoprazole 30 mg PO DAILY 30 days Tobacco use date assessed: 10/14/24 Dental Screening Dental Screen Date: 10/14/24 HPI bilateral leg pain/numbness/thombocytosis with Dr. CARBAJAL Details Patient comes in today for her follow up visit - she was last seen by me in August 2023 for her annual exam back then Since I last saw her, she's had an admission to [facility] back in June 2024 for increased weakness and numbness of her lower extremities but relates that her symptoms improved while she was being worked up in the hospital and she declined the doctors' recommendation then for a lumbar spine MRI and eventually signed out AMA She recalls being advised that she would benefit from physical therapy and that someone from PT will be reaching out to her but she states that it never happened and she ended up just looking up some back exercises and stretching program online and states that she has been doing these on her own and they have helped a lot with her low back pain, which she states hardly bother her nowadays States that she has lost a lot of weight since and thinks that this is also helping with her low back pain She was also seen and evaluated by hematology for persistent thrombocytosis - work ups done came back negative and her thrombocytosis normalized on her labs done back in August 2024 Repeat CBC a month later showed near normal platelet count of [id number] Patient reports that she experienced a syncopal event back in September 2024 when she went to get her labs done at [facility] The report was that she was noted to start shaking while getting her labs drawn and she appears to be almost similar to someone having a seizure, after which she passed out and was brought immediately to the ER for further evaluation Patient states that she has no recollection of the events and that the last thing she remembered was going to get her labs done and later woke up with several people looking at her while she was lying down on a stretcher at the ER Work ups done at the ER were mostly unrevealing except for mild GORDON/renal insufficiency which improved with IV hydration, thrombocytosis (which are not new) and some elevated inflammatory markers and it was determined that her syncopal episode at the time was most likely psychogenic or vasovagal Patient states that she has had no further seizure-like episodes or syncopal episodes since She reports (+) history of Raynaud's phenomenon in the past The patient takes Gabapentin and has recently restarted Lansoprazole for heartburn, which she reports is effective in controlling her symptoms, particularly at night She was previously using Tums frequently for her symptoms For contraception, she uses condoms and took Plan B last month She stopped taking hormonal control because it made her feel weird with hormonal imbalances She reports that her Pap smears and gynecology exams are up-to-date, with her next appointment in April 2025 Her family history is significant for diabetes in her mother. Patient states that she currently feels okay She denies any headaches or dizziness Denies any chest pains, no increased SOB No nausea/vomiting, no abdominal pain No change in bowel habits noted [facility] Medical History (Updated 02/20/25 @ 13:47 by Garfield Estrada MD) Lumbar degenerative disc disease History of atrial septal defect Obesity (BMI 30-39.9) Constipation Smoker GERD (gastroesophageal reflux disease) Surgical History History of percutaneous transcatheter closure of congenital ASD Hx of section Family History Maternal Grandmother Ovarian cancer Family/Other Ovarian cancer Social History Household Members: Spouse and Family Housing: House Are you a primary career specialist to a significant other at home: Yes Do you presently have visiting nurse or other home services: No Alcohol intake: never Patient Tobacco Use Status: Current everyday Tobacco user Tobacco use type: Cigarette Cigarette Packs Per Day: 0.5 e-Cigarette/Vaping Use: Never Used Second Hand Smoke Exposure: Yes Substance Use Type: Marijuana service: No Current occupational status: employed Current occupation: rt handed Cognitive needs: No Hearing needs: No Vision needs: Yes (Reading Glasses) Female Reproductive History Menstrual Age of Menarche: 12 Questionnaire Thrive Questionnaire Date Thrive assessed: 07/13/24 I am a: Patient What is your living situation today?: I have a steady place to live Within the past 12 months, did the food you bought not last and you didn't have the money to get more?: Never true Within the past 12 months, did you worry whether your food would run out before you got money to buy more?: Never true Do you have trouble paying for medicines?: No Do you have trouble getting transportation to medical appointments?: No Do you have trouble paying your heating and electricity bill?: No Do you have trouble taking care of your child, family member or friend?: No Do you have trouble with day-to-day activities such as bathing, preparing meals, shopping, managing finances, etc.?: No Are you currently unemployed and looking for a job?: No Are you interested in more education?: No Currently or been in a relationship where the following occur: No concerns reported THRIVE Score: 0 GENI-7 AMB Questionnaire GENI-7 Date GENI - 7 assessed: 10/14/24 Source: Developed by Drs. Ryder Olivo, Iris Schaefer, Bryan Loaiza and colleagues, with an educational joelle from [employer]. Review of Systems Const Denies chills, Denies difficulty sleeping, Denies fatigue, Denies fever(s) and Denies headache(s) ENT Denies dysphagia, Denies dizziness, Denies otalgia, Denies headache(s), Denies neck pain, Denies odynophagia and Denies sore throat Card Denies chest pain, Denies rapid heart rate, Denies irregular heart rhythm, Denies palpitations and Denies dyspnea Resp Denies chest congestion, Denies cough, Denies dyspnea and Denies wheezing GI Denies abdominal pain, Reports constipation (better controlled lately), Denies dysphagia, Denies heartburn (controlled on Lansoprazole), Denies diarrhea, Denies nausea, Denies odynophagia and Denies vomiting Denies difficulty voiding, Denies nocturia, Denies dysuria and Denies urinary urgency Musc Reports back pain (on and off, mostly tolerable/mild), Denies arthralgias, Denies joint swelling and Denies neck pain Skin/Breast Denies rash Neuro Denies dizziness, Denies headache(s) and Denies paresthesias Psych Reports anxiety and Denies depression Endo Denies fatigue and Denies palpitations Zay/Lymph Denies easy bruising Aller/Immun Denies wheezing Physical exam (Primary Care) Vital Signs: Last Vital Signs Temp 98.1 F 02/20/25 10:02 Pulse 90 02/20/25 10:02 Resp 14 02/20/25 10:02 BP 130/82 02/20/25 10:02 Pulse Ox 98 02/20/25 10:02 Oxygen Delivery Method Room Air 02/20/25 10:02 BMI result Body Mass Index 32.4 Tobacco/Smoking Status: Tobacco use Status Tobacco use date assessed 10/14/24 02/20/25 10:01 Patient Tobacco Use Status Current everyday Tobacco 02/20/25 10:01 Tobacco use type Cigarette 02/20/25 10:01 e-Cigarette/Vaping Use Never Used 02/20/25 10:01 Thrive Assessment: Date of Thrive Assessment Date Thrive assessed 07/13/24 02/20/25 10:01 Currently or been in a relationship where the following occur: No concerns reported Const General: no acute distress and alert HENMT Ears: TM's normal bilaterally and EAC's normal Throat: Yes posterior oropharynx normal and Yes tonsils normal (no TP congestion) Neck Neck: Yes supple and No lymphadenopathy Thyroid: Thyroid normal Resp Auscultation: clear to auscultation bilaterally, no rales and wheezes (faint, occasional) expiratory wheezes Cardio Rate: regular rate Rhythm: regular rhythm Heart sounds: no murmurs GI Palpation (GI): Soft to palpation and nontender Auscultation: normal bowel sounds General: Yes no CVA tenderness Back/Spine/Pelvis Back: no CVA tenderness Thoracic/Lumbar Spine: lumbar spinal tenderness (mild) Skin Rashes: no rashes Extrem General: Yes no clubbing, cyanosis or edema Coding Level of Care Code Est Pt Level 4 (54880) Add On Problem Visit Only Diagnoses Gastroesophageal reflux disease without esophagitis K21.9 Esophagitis presence: without esophagitis Thrombocytosis D75.839 Syncope, unspecified syncope type R55 Syncope type: unspecified Degeneration of intervertebral disc of lumbar region with discogenic back pain M51.360 Disc-related pain type: discogenic back pain only Positive LUCA (antinuclear antibody) R76.8 Smoker F17.200 Obesity (BMI 30-39.9) E66.9 Assessment & Plan Assessment & Plan (1) GERD (gastroesophageal reflux disease): Code(s): K21.9 - Gastro-esophageal reflux disease without esophagitis Category: Medical Qualifiers: Esophagitis presence: without esophagitis Qualified Code(s): K21.9 - Gastro-esophageal reflux disease without esophagitis Plan: Dietary restrictions reinforced Patient states that her GERD symptoms have been well-controlled on her current Rx Continue Lansoprazole 30 mg QD (2) Thrombocytosis: Code(s): D75.839 - Thrombocytosis, unspecified Category: Medical Plan: Appears resolved Work ups for her thrombocytosis done with hematology have all come back normal, including a negative JAK2 mutation Will continue to monitor her CBC regularly Follow up with hematology as scheduled or as needed (3) Episode of syncope: Code(s): R55 - Syncope and collapse Category: Medical Qualifiers: Syncope type: unspecified Qualified Code(s): R55 - Syncope and collapse Plan: Isolated event in September 2024 with no recurrence since - was likely vasovagal or psychogenic in etiology Work ups done so far have all been unrevealing (4) Lumbar degenerative disc disease: Code(s): M51.369 - Other intervertebral disc degeneration, lumbar region without mention of lumbar back pain or lower extremity pain Category: Medical Qualifiers: Disc-related pain type: discogenic back pain only Qualified Code(s): M51.360 - Other intervertebral disc degeneration, lumbar region with discogenic back pain only Plan: Reinforced activity and weight-lifting restrictions to avoid aggravating her low back pain Lumbar spine MRI last done on 07/09/2024 revealed a 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 There is also crowding of the traversing left S2 nerve root Patient states that she was advised that physical therapy will be reaching out to her but states that she never received any call from PT and that she has just been doing some back exercises and stretching on her own based on what she could find online and feels that she is doing well as she has not had any significant issues with increased low back pain lately Continue Gabapentin 100 mg TID (5) Positive LUCA (antinuclear antibody): Code(s): R76.8 - Other specified abnormal immunological findings in serum Category: Medical Plan: She tested positive for LUCA and a few other inflammatory markers when she was being evaluated in the ER for her syncopal episode a few months ago Will send her for labs to recheck these as well as some other labs for further evaluation, including hepatitis C Ab and Lyme disease titer She has been advised that if any of these come back positive, will likely refer her to rheumatology for further evaluation and management (6) Smoker: Code(s): F17.200 - Nicotine dependence, unspecified, uncomplicated Category: Medical Plan: She is counseled again on complete smoking cessation Due to her smoking history and her current finding on faint occasional expiratory wheezing on auscultation of her lungs today, will send her for chest x-rays for further evaluation (7) Obesity (BMI 30-39.9): Code(s): E66.9 - Obesity, unspecified Category: Medical Plan: Reinforced diet/exercise as tolerated/lose weight Plan To return as scheduled on 10/17/2025 for her annual physical examination Orders: Orders Complete Blood Count Auto Diff Today D64.9 - Anemia, unspecified Lipid Panel Today E78.00 - Pure hypercholesterolemia, unspecified TSH reflex Free T4 Today E78.00 - Pure hypercholesterolemia, unspecified UA CC w/rflx Micro + Cult Today R30.0 - Dysuria Vitamin D 25-OH Total Today E55.9 - Vitamin D deficiency, unspecified C Reactive Protein Today M25.50 - Pain in unspecified joint Erythrocyte Sedimentation Rate Today M25.50 - Pain in unspecified joint Rheumatoid Factor Today M25.50 - Pain in unspecified joint LUCA Reflex Titer and Pattern Today M25.50 - Pain in unspecified joint XR chest 2V Today J98.8 - Other specified respiratory disorders Comprehensive [place]. Panel Fast Today E78.00 - Pure hypercholesterolemia, unspecified Vitamin B12 and Folate Today E53.8 - Deficiency of other specified B group vitamins IRON PROFILE Today D50.9 - Iron deficiency anemia, unspecified Reticulocyte Count Today D64.9 - Anemia, unspecified Lyme IgG/IgM w/reflex to WB Today M25.50 - Pain in unspecified joint Hepatitis C Antibody Reflex Today M25.50 - Pain in unspecified joint
[2025-02-20 10:02] VITALS: BP 130/82; PULSE 90; RESP 14; TEMP 36.7; O2SAT 98; BMI 32.4
== END 2025-02-20 10:45 | disposition home or self-care (01) ==
LOC: HO.HMCH 09:40
PROVIDERS: PCP Internal Medicine; Visit Provider Internal Medicine
DX: K21.9 Gastro-esophageal reflux disease without esophagitis (principal); D75.839 Thrombocytosis, unspecified; R55 Syncope and collapse; M51.360 Other intervertebral disc degeneration, lumbar region with discogenic back pain only; R76.89 Other specified abnormal immunological findings in serum; F17.200 Nicotine dependence, unspecified, uncomplicated; E66.9 Obesity, unspecified

== ENCOUNTER → 2025-02-20 11:18 | Outpatient (BNV) | payer OTHER, SELFPAY | PROVIDERS: PCP Internal Medicine; Visit Provider Radiology Diagnostic Radiology | DX: J98.8 Other specified respiratory disorders (principal) | CPT/HCPCS: 71046 ==